=== PATIENT | female | born 1965 | race Caucasian/White ===

== ENCOUNTER → 2021-01-04 | Outpatient (REF) | payer MEDICARE ==
[2021-01-04 16:24] LABS: BASO % 0.7 % (0.0-1.0); EOS % 0.9 % (0.0-3.0); HEMATOCRIT 41.4 % (36.0-47.0); HEMOGLOBIN 13.7 g/dl (12.0-15.5); LYMPH # 1.8 10^3/uL (1.5-5.0); LYMPH % 41.4 % (24.0-44.0); MEAN CORPUSCULAR HEMOGLOBIN 31.6 pg (27.0-33.0); MEAN CORPUSCULAR HGB CONC 33.1 g/dl (32.0-36.5); MEAN CORPUSCULAR VOLUME 95.6 fl (80.0-96.0); MONO # 0.6 10^3/uL (0.0-0.8); MONO % 12.7 % (2.0-8.0); NEUTROPHILS % 44.1 % (36.0-66.0); PLATELET COUNT, AUTOMATED 209 10^3/uL (150-450); RED BLOOD COUNT 4.33 10^6/uL (4.00-5.40); WHITE BLOOD COUNT 4.4 10^3/uL (4.0-10.0)
[2021-01-04 16:40] LABS: ALBUMIN 3.8 GM/DL (3.2-5.2); BILIRUBIN,TOTAL 0.4 MG/DL (0.2-1.0); CALCIUM LEVEL 9.9 MG/DL (8.5-10.1); CHOLESTEROL RISK RATIO 2.644 (<5); CREATININE FOR GFR 1.17 MG/DL (0.55-1.30); FREE T4 0.81 NG/DL (0.76-1.46); GLOMERULAR FILTRATION RATE 50.8 (>51); POTASSIUM SERUM 4.3 MEQ/L (3.5-5.1); THYROID STIMULATING HORMONE 0.725 uIU/ML (0.358-3.740); TOTAL PROTEIN 7.4 GM/DL (6.4-8.2); URIC ACID 6.8 MG/DL (2.6-6.0)
[2021-01-04 17:09] LABS: HEMOGLOBIN A1c 5.2 %
== END ==
LOC: M SFHCCLAY 11:52
PROVIDERS: ATTEND Nurse Practitioner Family
DX: M10.9 Gout, unspecified (principal); I10 Essential (primary) hypertension; M79.672 Pain in left foot; F41.1 Generalized anxiety disorder; F51.04 Psychophysiologic insomnia; Z13.1 Encounter for screening for diabetes mellitus; Z79.899 Other long term (current) drug therapy

== ENCOUNTER → 2021-02-02 | Outpatient (REF) | payer MEDICARE ==
[2021-02-02 17:15] LABS: CALCIUM LEVEL 9.8 MG/DL (8.5-10.1); CREATININE FOR GFR 1.1 MG/DL (0.55-1.30); GLOMERULAR FILTRATION RATE 54.5 (>51); POTASSIUM SERUM 5.1 MEQ/L (3.5-5.1); URIC ACID 5.5 MG/DL (2.6-6.0)
== END ==
LOC: M SFHCCLAY 10:43
PROVIDERS: ATTEND Nurse Practitioner Family
DX: Z01.419 Encounter for gynecological examination (general) (routine) without abnormal findings (principal); M10.9 Gout, unspecified
CPT/HCPCS: 80048; 84550; G0123

== ENCOUNTER → 2021-03-08 | Outpatient (CLI) | payer MEDICARE ==
--- NOTE | 2021-03-08 13:22 | REPMRS ---
Patient History The patient states she had a clinical breast exam in January 2021. Patient is postmenopausal. Family history of colorectal cancer at age 85 in father. Patient had a benign cyst removed from left breast when she was 16 yrs old [employer] @ 56/had mammo years ago but no longer available No breast complaints today No covid vaccine Patient Identification Verified Digital Woman Screen Mammo: March 08, 2021 - Exam #: [id number] Bilateral CC and MLO view(s) were taken. Technologist: Liv Mosqueda, Technologist No prior studies available for comparison. FINDINGS: There are scattered fibroglandular densities. The Volpara volumetric breast density category is:B. There is a benign intramammary lymph node in the lateral aspect of each breast. There is also a grouping of microcalcifications in the superior and medial quadrant of the left breast which merits further evaluation. Lastly there are tiny calcific densities which appear to be on the skin in the axillary fold regions bilaterally. This is likely related to residue from deodorant. Mediolateral view should both be repeated. There has been no change in the appearance of the mammogram from the prior studies. There is a mild amount of scattered fibroglandular density which is fairly symmetric. There is no interval development of dominant mass, architectural distortion, or grouped microcalcification suggestive of malignancy. 3-D tomosynthesis shows no additional findings. Assessment: BI-RADS/ACR category 0 mammogram, Incomplete. Need additonal imaging evaluation and/or prior mammograms for comparison. Recommendation Special view mammogram of both breasts. This patient's [facility] Lifetime Breast Cancer RIsk is estimated at 7.1 %. This mammogram was interpreted with the aid of an FDA-approved computer-aided dectection system. Special view mammogram of the left breast. Recommend diagnostic mammography on the left and repeat mediolateral oblique projection mammogram on the right. Electronically Signed By: Thor Hardwick MD 03/08/21 5028
== END ==
LOC: M WHC 08:01
PROVIDERS: ATTEND Nurse Practitioner Family
DX: R92.2 Inconclusive mammogram (principal)

== ENCOUNTER → 2021-04-25 | Outpatient (CLI) | payer MEDICARE ==
--- NOTE | 2021-04-25 09:54 | REP ---
INDICATION: REPEAT R MLO, LEFT BREAST ADD VIEWS. COMPARISON: Screening exam 03/08/2021 TECHNIQUE: Diagnostic digital magnified spot compression views of the left breast upper inner quadrant over a grouping of punctate round calcifications and bilateral MLO views attention axillary region which is a repeat examination due to calcifications likely from deodorant. FINDINGS: The bilateral MLO views show the axillary calcifications to have been removed. In the upper inner quadrant of the left breast there is a group of round punctate calcifications which have little variance in size, shape, and radiographic density. IMPRESSION: BIRADS/ACR category 3 mammogram. Probably benign calcifications in the left breast upper inner quadrant as described above but without priors for comparison. Six-month follow-up is recommended. The patient letter being requested is M3. RECOMMENDATION: As above <Electronically signed by Giuseppe Grayson > 04/25/21 0998
== END ==
LOC: M WHC 08:51
PROVIDERS: ATTEND Nurse Practitioner Family
DX: R92.2 Inconclusive mammogram (principal)
CPT/HCPCS: 77066; G0279

== ENCOUNTER → 2021-05-05 | Outpatient (REF) | payer MEDICARE ==
[~2021-05-05] MED LIST: ADVA230A INH; ALLO10TA PO; CLON0.5T17 PO; FLUO20CA20 PO; FLUT50SP33; INCR1INH INH; NAPR-885 PO; PROAAER10 INH; TRAZ-257 PO
[2021-05-05 17:54] LABS: ALBUMIN 3.9 GM/DL (3.2-5.2); BILIRUBIN,TOTAL 0.4 MG/DL (0.2-1.0); CALCIUM LEVEL 10.4 MG/DL (8.5-10.1); CREATININE FOR GFR 1.07 MG/DL (0.55-1.30); GLOMERULAR FILTRATION RATE 56.1 (>51); POTASSIUM SERUM 4.4 MEQ/L (3.5-5.1); TOTAL PROTEIN 7.2 GM/DL (6.4-8.2); URIC ACID 2.4 MG/DL (2.6-6.0)
== END ==
LOC: M SFHCCLAY 09:20
PROVIDERS: ATTEND Nurse Practitioner Family
DX: F41.1 Generalized anxiety disorder (principal); I10 Essential (primary) hypertension; F51.04 Psychophysiologic insomnia; M10.9 Gout, unspecified; M79.672 Pain in left foot

== ENCOUNTER → 2021-05-11 | Outpatient (CLI) | payer MEDICARE | LOC: M LABSMTC 09:38 | PROVIDERS: ATTEND Anesthesiology | DX: Z01.812 Encounter for preprocedural laboratory examination (principal); Z11.52 Encounter for screening for COVID-19 ==

== ENCOUNTER 2021-05-16 12:06 | Day surgery (SDC) | payer MEDICARE ==
[~2021-05-16] VITALS: Ht 170.2 cm; Wt 76.7 kg
[~2021-05-16 12:06] MED LIST changes: +NS 1,000 ML IV ONE
--- OUTSIDE RECORDS SUMMARY | 2021-05-16 12:10 | CCD | Continuity of Care Document ---
Author Author Sapphire SMITH PA-C Organization Unknown Address [address] [place] [address], [address] [place] [address] Phone [phone] Care Team Providers Care Insole Buffer Name Role Phone Aissatou Muñoz AUTM [phone] AUTM Unavailable Problems Active Problems Provider Date Essential hypertension JAS Rivas Onset: Social History Type Date Description Comments Sex Unknown ETOH Use 2 A Day Tobacco Use Start: Unknown Light tobacco smoker (10 or fewe r cigarettes/day) 4 Cigs per day Allergies, Adverse Reactions, Alerts Description No Known Drug Allergies Medications Active Medications SIG Qnty Indications Ordering Provide r Date Suprep Bowel Prep Kit 17.5-3.13-1.6GM/177ML Solution take per doctor's bowel prep instructions. 354ml Z12.1 1 Ifeanyi Lawler MD 03/22/[address] take 4 tabs by mouth prior to procedure per instructions. 4tabs Z12.11 Ifeanyi Lawler MD 03/22/2021 Naproxen 500mg Tablets 1 by mouth twice a day Unknown Trazodone HCL 100mg Tablets 2 at hs Unknown Fluoxetine HCL 40mg Capsules daily Unknown Albuterol Sulfate HFA 108(90Base) mcg/Act Aerosol inhale two puffs by mouth four times a day as needed Unknown Fluticasone Propionate 50mcg/Act Suspension 1 spray to each nostril daily Unknown Allopurinol 300mg Tablets 1 by mouth every day Unknown Advair Diskus 250-50mcg/Dose Aeros ol 1 puff twice a day Unknown Incruse Ellipta 62.5mcg/Inh Aeroso l 1 puff every day Unknown Hydrochlorothiazide 12.5mg Capsule s 1 by mouth every day Unknown Clonazepam 0.5mg Tablets tid Unknown Laly Aspirin Ec Low Dose 81mg Tab lets DR Daily Unknown Apple Cider Vinegar Ultra 600mg Ca psules Daily Unknown Centrum Silver Tablets Daily Unknown Immunizations Description No Information Available Vital Signs Date Vital Result Comment 03/22/2021 1:35pm BP Systolic 112 mmHg BP Diastolic 72 mmHg Height 66.5 inches 5'6.50" Weight 166.00 lb BMI (Body Mass Index) 26.4 kg/m2 [place] Body Weight 130 lb Weight 75.298 kg BSA (Body Surface Area) 1.86 m2 Results Description No Information Available Procedures Description No Information Available Medical Devices Description No Information Available Encounters Description No Information Available Assessments Date Code Description Provider 03/22/2021 Z12.11 Encounter for screening for dena gnant neoplasm of colon Tiffanie Lagunas JAS Smith 03/22/2021 Z86.010 Personal history of colonic poly ps Tiffanie Lagunas JAS Smith 03/22/2021 Z80.0 Family history of malignant neop lasm of digestive organs Tiffanie A JAS Smith 03/22/2021 K21.9 Gastro-esophageal reflux disease without esophagitis Tiffanie Janneth JAS Smith Plan of Treatment 03/22/2021 - Tiffanie Lagunas JAS Smith* Z12.11 Encounter for screening for malignant neoplasm of colon * Z86.010 Personal history of colonic polyps * Z80.0 Family history of malignant neoplasm of digestive organs * K21.9 Gastro-esophageal reflux disease without esophagitis * * New Medication:* Suprep Bowel Prep Kit 17.5-3.13-1.6 GM/177ML * Dulcolax 5 mg * New Orders:* Colonoscopy, Ordered: 03/22/21 * Comments:* Will arrange for upper endoscopy and colonoscopy. Reviewed risks and benefits of the procedures, as well as other options, with the patient. Prep for this procedure was discussed with patient, including risks and side effects associated with the prep. Patient verbalized understanding of all of the above and is in agreement to proceed. Patient will seek medical attention for any acute changes. Will monitor. * Follow up:* As scheduled, sooner if needed. Functional Status Description No Information Available Mental Status Description No Information Available Referrals Refer to Reason for Referral Status Appt Date Janie Neely F.N.P. COPD, LUIZ Created [facility] [address] [place], [place] [id number] [phone] Adriel Cardenas M.D. COLO SCREEN Scheduled 03/22 [facility] [address], [address] [place] [address] [phone]
--- OUTSIDE RECORDS SUMMARY | 2021-05-16 12:10 | CCD ---
Author Author [facility] Organization [facility] Address Unknown Phone Unavailable Care Team Providers Care Shoe Dyer Name Role Phone Wanda Aissatou Unavailable PROBLEMS Type Condition ICD9-CM Code [id number] Code Onset Dates Condition S tatus W/U Status Risk SNOMED Code Notes Problem HTN (hypertension), benign I10 Active confirmed 17905575 Problem ANOOP (generalized anxiety disorder) F41.1 Activ e confirmed 92638438 Problem Chronic obstructive pulmonary disease, unspecified COPD ty pe J44.9 Active confirmed 08893833 Problem Other chronic pain G89.29 Active confirmed 8 2997927 Problem Acute gout of left knee, unspecified cause M10.9 Active confirmed [id number] Problem Abnormal mammogram of both breasts R92.8 Activ e confirmed 149659900 Problem Psychophysiological insomnia F51.04 Active confirme d 619166523 Problem LUIZ (obstructive sleep apnea) G47.33 Active confirm ed 51323523 Problem Lumbago with sciatica, left side M54.42 Active confirmed 887543266 Problem Lumbago with sciatica, right side M54.41 Active confirmed 755818236843247 ALLERGIES No Known Allergies ENCOUNTERS from 1965 to 2021-04-12 Encounter Location Date Provider Diagnosis [phone] [place] [address] Mar, Aissatou Muñoz IMMUNIZATIONS No Information SOCIAL HISTORY Tobacco Use: Social History Observation Description Date Details (start date - stop date) Current Smoker Sex Assigned At : Social History Observation Description Sex Assigned At Unknown Audit Question Answer Notes Total Score: 2 Interpretation: Alcohol Education Baptist: Question Answer Notes Baptist No rastafari beliefs that would impact health care. Drug and Alcohol Question Answer Notes Total Score: 0 Interpretation: No problems reported Alcohol Screening: Question Answer Notes Did you have a drink containing alcohol in the past year? Ye s Points 3 Interpretation Positive How often did you have six or more drinks on one occas ion in the past year? Never (0 points) How many drinks did you have on a typica l day when you were drinking in the past year? 1 or 2 (0 points) How often did you have a drink containing alcohol in t he past year? Two to three times per week (3 points) Tobacco Use: Question Answer Notes Are you a: current smoker How many cigarettes a day do you smoke? 5 or less Are you interested in quitting? Ready to quit Counseled the patient on tobacco use, cessation provided 02/2021 REASON FOR REFERRAL No Information VITAL SIGNS No information MEDICATIONS Medication SIG (Take, Route, Frequency, Duration) Notes Start Da te End Date Status Advair Diskus 250-50 MCG/DOSE 1 puff Inhalation Twice a day Active Losartan Potassium 50 MG 1 tablet Orally Once a day Active Allopurinol 300 MG TAKE 1 TABLET BY MOUTH EVERY DAY for 90 Active Ergocalciferol 1.25 MG (86325 UT) 1 capsule Orally weekly Active Incruse Ellipta 62.5 MCG/INH 1 puff Inhalation Once a day Active Fluticasone Propionate 50 MCG/ACT 1 spray in each nost ril Nasally Once a day for 30 day(s) Active clonazePAM 0.5 MG TAKE 1 TABLET BY MOUTH THREE TIMES DAILY AT BEDTIME MAXIMUM DAILY DOSE IS 3 TABLETS orally tid for 30 days 13 Mar, 2021 Active Multivitamin Adult Active predniSONE 20 MG 1 tablet Orally Once a day for 3 day(s) 0 9 Dec, 2020 Not-Taking Apple Cider Vinegar Activ e traZODone HCl 100 MG 1 tablet at bedtime Orally Once a day Active PROzac 40 MG 1 capsule Orally Once a day Active Spacer/Aero-Hold Chamber Bags - as directed - - for 30 Days Active hydroCHLOROthiazide 12.5 MG 1 tablet in the morning Orally Once a day Active Laly Aspirin EC Low Dose 81 MG 1 tablet Orally Once a day for 30 day (s) Active Albuterol Sulfate HFA 108 (90 Base) MCG/ACT 1 puff as needed Inhalation every 4 hrs PRN Active Flonase Not-Taking predniSONE 20 MG 2 tabs Orally PRN for COPD Flare Up COPD PRN Active PROCEDURES No Information RESULTS No Results REASON FOR VISIT script MEDICAL (GENERAL) HISTORY Type Description Date Medical History COPD Medical History HTN Medical History Gout Medical History Insomnia Medical History Anxiety Medical History Sciatic nerve damage Surgical History Reconstructive right great toe Surgical History Mass removed from left breast - benign 1 980s Surgical History Left kidney partial removal 2019 Surgical History Cholecystectomy Surgical History Colonoscopy: polyp removal 2015 Hospitalization History Surgery Goals Section No Information Health Concerns No Information MEDICAL EQUIPMENT No Information MENTAL STATUS No Information FUNCTIONAL STATUS No Information ASSESSMENTS No Information PLAN OF TREATMENT Medication Medication Name Sig Start Date Stop Date PROzac 40 MG 1 capsule Orally Once a day clonazePAM 0.5 MG TAKE 1 TABLET BY MOUTH THREE TIMES DAILY AT BEDTIME MAXIMUM DAILY DOSE IS 3 TABLETS orally tid for 30 days Mar, traZODone HCl 100 MG 1 tablet at bedtime Orally Once a day hydroCHLOROthiazide 12.5 MG 1 tablet in the morning Orally Once a day Allopurinol 300 MG TAKE 1 TABLET BY MOUTH EVERY DAY for 90 Losartan Potassium 50 MG 1 tablet Orally Once a day Spacer/Aero-Hold Chamber Bags - as directed - - for 30 Days Incruse Ellipta 62.5 MCG/INH 1 puff Inhalation Once a day Advair Diskus 250-50 MCG/DOSE 1 puff Inhalation Twice a day Next Appt Details Provider Name:Aissatou Muñoz, 2020-07 007 09:00:00 AM, [address], , [place], [address], Insurance Providers Payer Name Payer Address Payer Phone Insured Name Patient Relati onship to Insured Coverage Start Date Coverage End Date AETNA MEDICARE AETNA LIFE INSURANCE [employer] [address] [facility] [id number] LIA NORIEGA self
--- OUTSIDE RECORDS SUMMARY | 2021-05-16 12:10 | CCD ---
Author Author [facility] Organization [facility] Address Unknown Phone Unavailable Care Team Providers Care Hosting Engineer Name Role Phone Aissatou Muoñz Unavailable PROBLEMS Type Condition ICD9-CM Code IQQ12-QM Code Onset Dates Condition S tatus W/U Status Risk SNOMED Code Notes Problem HTN (hypertension), benign I10 Active confirmed 57748352 Problem ANOOP (generalized anxiety disorder) F41.1 Activ e confirmed 90567735 Problem Chronic obstructive pulmonary disease, unspecified COPD ty pe J44.9 Active confirmed 59777399 Problem Other chronic pain G89.29 Active confirmed 8 3078602 Problem Acute gout of left knee, unspecified cause M10.9 Active confirmed 420395403854591 Problem Abnormal mammogram of both breasts R92.8 Activ e confirmed 457015191 Problem Psychophysiological insomnia F51.04 Active confirme d 023254204 Problem LUIZ (obstructive sleep apnea) G47.33 Active confirm ed 84745453 Problem Lumbago with sciatica, left side M54.42 Active confirmed 138068280 Problem Lumbago with sciatica, right side M54.41 Active confirmed 025076967047197 ALLERGIES No Known Allergies ENCOUNTERS from 1965 to 2021-03-22 Encounter Location Date Provider Diagnosis [facility] [address] [phone] [place] [address] Feb, Aissatou Muñoz Abnormal mammogram of both breasts R92.8 IMMUNIZATIONS No Information SOCIAL HISTORY Tobacco Use: Social History Observation Description Date Details (start date - stop date) Current Smoker Sex Assigned At : Social History Observation Description Sex Assigned At Unknown Audit Question Answer Notes Total Score: 2 Interpretation: Alcohol Education Zoroastrian: Question Answer Notes Zoroastrian No sabianist beliefs that would impact health care. Drug [...] DAY for 90 Active Ergocalciferol 1.25 MG (21626 UT) 1 capsule Orally weekly Active Incruse Ellipta 62.5 MCG/INH 1 puff Inhalation Once a day Active Fluticasone Propionate 50 MCG/ACT 1 spray in each nost ril Nasally Once a day for 30 day(s) Active predniSONE 20 MG 1 tablet Orally Once a day for 3 day(s) 0 9 Dec, 2020 Not-Taking Multivitamin Adult Active Albuterol Sulfate HFA 108 (90 Base) MCG/ACT 1 puff as needed Inhalation every 4 hrs PRN Active Apple Cider Vinegar Activ e traZODone HCl [...] a day for 30 day (s) Active clonazePAM 0.5 MG TAKE 1 TABLET BY MOUTH THREE TIMES DAILY AT BEDTIME MAXIMUM DAILY DOSE IS 3 TABLETS for 30 16 Feb, 2021 A ctive Flonase Not-Taking predniSONE 20 MG 2 tabs Orally PRN for COPD Flare Up COPD PRN Active PROCEDURES No Information RESULTS No Results REASON FOR VISIT No Information MEDICAL (GENERAL) HISTORY Type Description Date Medical [...] No Information FUNCTIONAL STATUS No Information ASSESSMENTS Encounter Date Diagnosis Assessment Notes Treatment Notes Treatm ent Clinical Notes Feb, Abnormal mammogram of both breasts (ICD-10 - R92 .8) PLAN OF TREATMENT Medication Medication Name Sig Start Date Stop Date PROzac 40 MG 1 capsule Orally Once a day clonazePAM 0.5 MG TAKE 1 TABLET BY MOUTH THREE TIMES DAILY AT BEDTIME MAXIMUM DAILY DOSE IS 3 TABLETS for 30 Feb, traZODone HCl 100 MG 1 tablet at [...] MCG/DOSE 1 puff Inhalation Twice a day Treatment Notes Test Name Order Date [facility] DIAGNOSTIC BILATERAL MAMMO (Ultrasound if indicat ed) 2021-03-08 Next Appt Details Provider Name:Aissatou Muñoz, 2020-07 007 09:00:00 AM, [address] , , [place], [address], Insurance Providers Payer Name Payer Address Payer Phone Insured Name Patient Relati onship to Insured Coverage Start Date Coverage End Date AETNA MEDICARE AETNA [employer] INSURANCE [employer] [address] [facility] [phone] LIA NORIEGA self
--- OUTSIDE RECORDS SUMMARY | 2021-05-16 12:10 | CCD ---
Author Author [facility] Organization [facility] Address Unknown Phone Unavailable Care Team Providers Care Hazardous Materials Tanker Driver Name Role Phone Fabienne Muñoziffer Unavailable PROBLEMS Type Condition ICD9-CM Code [id number] Code Onset Dates Condition S tatus W/U Status Risk SNOMED Code Notes Problem Acute gout of left knee, unspecified cause M10.9 Active confirmed [id number] Problem HTN (hypertension), benign I10 Active confirmed 43174870 Problem ANOOP (generalized anxiety disorder) F41.1 Activ e confirmed 38735552 Problem Lumbago with sciatica, right side M54.41 Active confirmed 852969111343885 Problem Other chronic pain G89.29 Active confirmed 8 1922019 Problem Chronic obstructive pulmonary disease, unspecified COPD ty pe J44.9 Active confirmed 30936861 Problem Psychophysiological insomnia F51.04 Active confirme d 238141661 Problem LUIZ (obstructive sleep apnea) G47.33 Active confirm ed 11203171 Problem Lumbago with sciatica, left side M54.42 Active confirmed 266920646 ALLERGIES No Known Allergies ENCOUNTERS from 1965 to 2021-02-17 Encounter Location Date Provider Diagnosis [address] [phone] [place] [address] Jan, Aissatou Muñoz IMMUNIZATIONS No Information SOCIAL HISTORY Tobacco Use: Social History Observation Description Date Details (start date - stop date) Current Smoker Sex Assigned At : Social History Observation Description Sex Assigned At Unknown Audit Question Answer Notes Total Score: 2 Interpretation: Alcohol Education Restorationism: Question Answer Notes Restorationism No lutheran beliefs that would impact health care. Drug [...] Notes Start Da te End Date Status Losartan Potassium 50 MG 1 tablet Orally Once a day Active predniSONE 20 MG 2 tabs Orally PRN for COPD Flare Up Active Incruse Ellipta 62.5 MCG/INH 1 puff Inhalation Once a day Active hydroCHLOROthiazide 12.5 MG 1 tablet in the morning Orally Once a day Active Advair Diskus 250-50 MCG/DOSE 1 puff Inhalation Twice a day Active Fluticasone Propionate 50 MCG/ACT 1 spray in each nost ril Nasally Once a day for 30 day(s) Active predniSONE 20 MG 1 tablet Orally Once a day for 3 day(s) 0 9 Dec, 2020 Not-Taking Multivitamin Adult Active Albuterol Sulfate HFA 108 (90 Base) MCG/ACT 1 puff as needed Inhalation every 4 hrs PRN Active traZODone HCl 100 MG 1 tablet at bedtime Orally Once a day Active Ergocalciferol 1.25 MG (55491 UT) 1 capsule Orally weekly Active clonazePAM 0.5 MG 1 tablet at bedtime Orally three times per day for 30 Days Active Laly Aspirin EC Low Dose 81 MG 1 tablet Orally Once a day for 30 day (s) Active Flonase Not-Taking Apple Cider Vinegar Activ e Allopurinol 300 MG 1 tablet Orally Once a day for 90 day(s) Active PROzac 40 MG 1 capsule Orally Once a day Active Spacer/Aero-Hold Chamber Bags - as directed - - for 30 Days Active PROCEDURES No Information RESULTS No Results REASON FOR VISIT zunable to move finger s/p laceration MEDICAL (GENERAL) HISTORY Type Description Date Medical [...] Medication Name Sig Start Date Stop Date clonazePAM 0.5 MG 1 tablet at bedtime Orally three times per day for 30 Days Allopurinol 300 MG 1 tablet Orally Once a day for 90 day(s) hydroCHLOROthiazide 12.5 MG 1 tablet in the morning Orally Once a day PROzac 40 MG 1 capsule Orally Once a day Incruse Ellipta 62.5 MCG/INH 1 puff Inhalation Once a day Spacer/Aero-Hold Chamber Bags - as directed - - for 30 Days traZODone HCl 100 MG 1 tablet at bedtime Orally Once a day Advair Diskus 250-50 MCG/DOSE 1 puff Inhalation Twice a day Losartan Potassium 50 MG 1 tablet Orally Once a day Next Appt Details Provider Name:Aissatou Muñoz, 2020-07 09:00:00 AM, [address] , , [place], [address], Insurance Providers Payer Name Payer Address Payer Phone Insured Name Patient Relati onship to Insured Coverage Start Date Coverage End Date AETNA MEDICARE AETNA [email or web address] INSURANCE [employer] [address] [facility] [phone] LIA NORIEGA self
--- OUTSIDE RECORDS SUMMARY | 2021-05-16 12:10 | CCD ---
Author Author [facility] Organization [facility] Address Unknown Phone Unavailable Care Team Providers Care Gas Fitter Apprentice Name Role Phone Neeraj Oconnell Unavailable PROBLEMS Type Condition ICD9-CM Code [id number] Code Onset Dates Condition S tatus W/U Status Risk SNOMED Code Notes Problem HTN (hypertension), benign I10 Active confirmed 07701710 Problem ANOOP (generalized anxiety disorder) F41.1 Activ e confirmed 10203809 Problem Chronic obstructive pulmonary disease, unspecified COPD ty pe J44.9 Active confirmed 47588506 Problem Other chronic pain G89.29 Active confirmed 8 8125686 Problem Acute gout of left knee, unspecified cause M10.9 Active confirmed 035774846089317 Problem Abnormal mammogram of both breasts R92.8 Activ e confirmed 100751343 Problem Psychophysiological insomnia F51.04 Active confirme d 248505032 Problem LUIZ (obstructive sleep apnea) G47.33 Active confirm ed 83228805 Problem Lumbago with sciatica, left side M54.42 Active confirmed 726294056 Problem Lumbago with sciatica, right side M54.41 Active confirmed 595979379055512 ALLERGIES No Known Allergies ENCOUNTERS from 1965 to 2021-03-10 Encounter Location Date Provider Diagnosis [facility] [phone] [place] [address] Feb, Neeraj Oconnell ANOOP (generalized anxiety disorder) F41.1 IMMUNIZATIONS No Information SOCIAL HISTORY Tobacco Use: Social History Observation Description Date Details (start date - stop date) Current Smoker Sex Assigned At : Social History Observation Description Sex Assigned At Unknown Audit Question Answer Notes Total Score: 2 Interpretation: Alcohol Education Jainism: Question Answer Notes Jainism No mu-ism beliefs that would impact health care. Drug [...] DAY for 90 Active Ergocalciferol 1.25 MG (13678 UT) 1 capsule Orally weekly Active Incruse [...] 30 day (s) Active clonazePAM 0.5 MG 1 tablet at bedtime Orally three times per day for 30 Days Feb, Active Flonase Not-Taking predniSONE 20 MG 2 [...] Treatment Notes Treatm ent Clinical Notes Feb, ANOOP (generalized anxiety disorder) (ICD-10 - F41 .1) PLAN OF TREATMENT Medication Medication Name Sig Start Date Stop Date PROzac 40 MG 1 capsule Orally Once a day clonazePAM 0.5 MG 1 tablet at bedtime Orally three times p er day for 30 Days Feb, traZODone HCl 100 MG 1 tablet [...] 007 09:00:00 AM, [address] , , [place], [address], Insurance Providers Payer Name Payer Address Payer Phone Insured Name Patient Relati onship to Insured Coverage Start Date Coverage End Date AETNA MEDICARE AETNA [employer] INSURANCE [employer] [address] [facility] [id number] LIA NORIEGA self
--- OUTSIDE RECORDS SUMMARY | 2021-05-16 12:10 | CCD ---
Author Author [facility] Organization [facility] Address Unknown Phone Unavailable Care Team Providers Care Bandoleer Straightener Stamper Name Role Phone Aissatou Muñoz Unavailable PROBLEMS Type Condition ICD9-CM Code YZW05-ME Code Onset Dates Condition S tatus W/U Status Risk SNOMED Code Notes Problem ANOOP (generalized anxiety disorder) F41.1 Activ e confirmed 62970914 Problem Chronic obstructive pulmonary disease, unspecified COPD ty pe J44.9 Active confirmed 16184341 Problem Psychophysiological insomnia F51.04 Active confirme d 845124186 Problem Abnormal mammogram of both breasts R92.8 Activ e confirmed 332591184 Problem Acute gout of left knee, unspecified cause M10.9 Active confirmed 748162299638423 Problem Abnormal mammogram of left breast R92.8 Active confirmed 261317891 Problem HTN (hypertension), benign I10 Active confirmed 97026312 Problem LUIZ (obstructive sleep apnea) G47.33 Active confirm ed 52168428 Problem Lumbago with sciatica, left side M54.42 Active confirmed 164261847 Problem Lumbago with sciatica, right side M54.41 Active confirmed 786615639497351 Problem Other chronic pain G89.29 Active confirmed 8 2286067 ALLERGIES No Known Allergies ENCOUNTERS from 1965 to 2021-04-25 Encounter Location Date Provider Diagnosis [facility] [phone] [place] [address] Mar, Aissatou Muñoz Abnormal mammogram of left breast R92.8 IMMUNIZATIONS No Information SOCIAL HISTORY Tobacco Use: Social History Observation Description Date Details (start date - stop date) Current Smoker Sex Assigned At : Social History Observation Description Sex Assigned At Unknown Audit Question Answer Notes Total Score: 2 Interpretation: Alcohol Education Sikh: Question Answer Notes Sikh No spiritism beliefs that would impact health care. Drug [...] DAY for 90 Active Ergocalciferol 1.25 MG (63820 UT) 1 capsule Orally weekly Active Incruse [...] Notes Treatment Notes Treatm ent Clinical Notes Mar, Abnormal mammogram of left breast (ICD-10 - R92. 8) PLAN OF TREATMENT Medication Medication Name Sig [...] MCG/DOSE 1 puff Inhalation Twice a day Future Test Test Name Order Date [facility] Bret Diagnostic Unilateral (Ultrasound if Indicat ed) (3D Mammo) 20211023 Next Appt Details Provider Name:Aissatou Muñoz, 2020-07 0 09:00:00 AM, [address], , [place], [address], Insurance Providers Payer Name Payer Address Payer Phone Insured Name Patient Relati onship to Insured Coverage Start Date Coverage End Date [employer] MEDICARE [employer] INSURANCE SyndicateRoom [address] [facility] [id number] LIA NORIEGA self
--- OUTSIDE RECORDS SUMMARY | 2021-05-16 12:10 | CCD ---
Author Author [facility] Organization [facility] Address Unknown Phone Unavailable Care Team Providers Care Glass Grinder Name Role Phone CHRISTOPHER, M ABRIL PA Unavailable Unavailable CHRISTOPHER, M ABRIL PA Unavailable Unavailable CHRISTOPHER, M ABRIL PA Unavailable Unavailable CHRISTOPHER, M ABRIL PA Unavailable Unavailable CHRISTOPHER, M ABRIL PA Unavailable Unavailable CHRISTOPHER, M ABRIL PA Unavailable Unavailable CHRISTOPHER, M ABRIL PA Unavailable Unavailable CHRISTOPHER, M ABRIL PA Unavailable Unavailable CHRISTOPHER, M ABRIL PA Unavailable Unavailable CHRISTOPHER, M ABRIL PA Unavailable Unavailable CHRISTOPHER, M ABRIL PA Unavailable Unavailable CHRISTOPHER, M ABRIL PA Unavailable Unavailable CHRISTOPHER, M ABRIL PA Unavailable Unavailable CHRISTOPHER, M ABRIL PA Unavailable Unavailable CHRISTOPHER, M ABRIL PA Unavailable Unavailable CHRISTOPHER, M ABRIL PA Unavailable Unavailable CHRISTOPHER, M ABRIL PA Unavailable Unavailable CHRISTOPHER, M ABRIL PA Unavailable Unavailable CHRISTOPHER, M ABRIL PA Unavailable Unavailable CHRISTOPHER, M ABRIL PA Unavailable Unavailable CHRISTOPHER, M ABRIL PA Unavailable Unavailable CHRISTOPHER, M ABRIL PA Unavailable Unavailable CHRISTOPHER, M ABRIL PA Unavailable Unavailable CHRISTOPHER, M ABRIL PA Unavailable Unavailable Alberry, D Aissatou SECURITY INSTALLER Unavailable Unavailable Alberry, D Aissatou SECURITY INSTALLER Unavailable Unavailable Alberry, D Aissatou SECURITY INSTALLER Unavailable Unavailable Alberry, D Aissatou SECURITY INSTALLER Unavailable Unavailable Alberry, D Aissatou SECURITY INSTALLER Unavailable Unavailable Alberry, D Aissatou SECURITY INSTALLER Unavailable Unavailable Alberry, D Aissatou SECURITY INSTALLER Unavailable Unavailable Alberry, D Aissatou SECURITY INSTALLER Unavailable Unavailable Alberry, D Aissatou SECURITY INSTALLER Unavailable Unavailable Alberry, D Aissatou SECURITY INSTALLER Unavailable Unavailable Alberry, D Aissatou SECURITY INSTALLER Unavailable Unavailable Alberry, D Aissatou SECURITY INSTALLER Unavailable Unavailable Alberry, D Aissatou SECURITY INSTALLER Unavailable Unavailable Alberry, D Aissatou SECURITY INSTALLER Unavailable Unavailable Alberry, D Aissatou SECURITY INSTALLER Unavailable Unavailable Alberry, D Aissatou SECURITY INSTALLER Unavailable Unavailable Alberry, D Aissatou SECURITY INSTALLER Unavailable Unavailable Alberry, D Aissatou SECURITY INSTALLER Unavailable Unavailable Alberry, D Aissatou SECURITY INSTALLER Unavailable Unavailable Alberry, D Aissatou SECURITY INSTALLER Unavailable Unavailable Alberry, D Aissatou SECURITY INSTALLER Unavailable Unavailable Alberry, D Aissatou SECURITY INSTALLER Unavailable Unavailable Alberry, D Aissatou SECURITY INSTALLER Unavailable Unavailable Alberry, D Aissatou SECURITY INSTALLER Unavailable Unavailable Alberry, D Aissatou SECURITY INSTALLER Unavailable Unavailable Alberry, D Aissatou SECURITY INSTALLER Unavailable Unavailable Alberry, D Aissatou SECURITY INSTALLER Unavailable Unavailable Alberry, D Aissatou SECURITY INSTALLER Unavailable Unavailable Alberry, D Aissatou SECURITY INSTALLER Unavailable Unavailable Alberry, D Aissatou SECURITY INSTALLER Unavailable Unavailable Alberry, D Aissatou SECURITY INSTALLER Unavailable Unavailable Alberry, D Aissatou SECURITY INSTALLER Unavailable Unavailable Alberry, D Aissatou SECURITY INSTALLER Unavailable Unavailable Alberry, D Aissatou SECURITY INSTALLER Unavailable Unavailable Alberry, D Aissatou SECURITY INSTALLER Unavailable Unavailable Alberry, D Aissatou SECURITY INSTALLER Unavailable Unavailable Alberry, D Aissatou SECURITY INSTALLER Unavailable Unavailable Alberry, D Aissatou SECURITY INSTALLER Unavailable Unavailable Alberry, D Aissatou SECURITY INSTALLER Unavailable Unavailable Alberry, D Aissatou SECURITY INSTALLER Unavailable Unavailable Alberry, D Aissatou SECURITY INSTALLER Unavailable Unavailable Alberry, D Aissatou SECURITY INSTALLER Unavailable Unavailable Alberry, D Aissatou SECURITY INSTALLER Unavailable Unavailable Alberry, D Aissatou SECURITY INSTALLER Unavailable Unavailable Alberry, D Aissatou SECURITY INSTALLER Unavailable Unavailable Alberry, D Aissatou SECURITY INSTALLER Unavailable Unavailable Alberry, D Aissatou SECURITY INSTALLER Unavailable Unavailable Alberry, D Aissatou SECURITY INSTALLER Unavailable Unavailable Alberry, D Aissatou SECURITY INSTALLER Unavailable Unavailable Alberry, D Aissatou SECURITY INSTALLER Unavailable Unavailable Alberry, D Aissatou SECURITY INSTALLER Unavailable Unavailable Alberry, D Aissatou SECURITY INSTALLER Unavailable Unavailable Alberry, D Aissatou SECURITY INSTALLER Unavailable Unavailable Alberry, D Aissatou SECURITY INSTALLER Unavailable Unavailable Alberry, D Aissatou SECURITY INSTALLER Unavailable Unavailable Nate MEAD DPM Unavailable Unavailable Nate MEAD DPM Unavailable Unavailable Nate MEAD DPM Unavailable Unavailable Nate MEAD DPM Unavailable Unavailable Nate MEAD DPM Unavailable Unavailable Nate MEAD DPM Unavailable Unavailable Nate MEAD DPM Unavailable Unavailable Nate MEAD DPM Unavailable Unavailable Nate MEAD DPM Unavailable Unavailable MAJAK, R ISRA DPM Unavailable Unavailable MAJAK, R ISRA DPM Unavailable Unavailable MAJAK, R ISRA DPM Unavailable Unavailable MAJAK, R ISRA DPM Unavailable Unavailable MAJAK, R ISRA DPM Unavailable Unavailable MAJAK, R ISRA DPM Unavailable Unavailable MAJAK, R ISRA DPM Unavailable Unavailable MAJAK, R ISRA DPM Unavailable Unavailable MAJAK, R ISRA DPM Unavailable Unavailable MAJAK, R ISRA DPM Unavailable Unavailable MAJAK, R ISRA DPM Unavailable Unavailable MAJAK, R ISRA DPM Unavailable Unavailable MAJAK, R ISRA DPM Unavailable Unavailable MAJAK, R ISRA DPM Unavailable Unavailable MAJAK, R ISRA DPM Unavailable Unavailable MAJAK, R ISRA DPM Unavailable Unavailable MAJAK, R ISRA DPM Unavailable Unavailable MAJAK, R ISRA DPM Unavailable Unavailable MAJAK, R IRSA DPM Unavailable Unavailable MAJAK, R ISRA DPM Unavailable Unavailable MAJAK, R ISRA DPM Unavailable Unavailable MAJAK, R ISRA DPM Unavailable Unavailable RILEY, L DAR PA Unavailable Unavailable RILEY, L DAR PA Unavailable Unavailable RILEY, L DAR PA Unavailable Unavailable RILEY, L DAR PA Unavailable Unavailable RILEY, L DAR PA Unavailable Unavailable RILEY, L DAR PA Unavailable Unavailable RILEY, L DAR PA Unavailable Unavailable RILEY, L DAR PA Unavailable Unavailable RILEY, L DAR PA Unavailable Unavailable RILEY, L DAR PA Unavailable Unavailable RILEY, L DAR PA Unavailable Unavailable RILEY, L DAR PA Unavailable Unavailable RILEY, L DAR PA Unavailable Unavailable RILEY, L DAR PA Unavailable Unavailable RILEY, L DAR PA Unavailable Unavailable RILEY, L DAR PA Unavailable Unavailable RILEY, L DAR PA Unavailable Unavailable RILEY, L DAR PA Unavailable Unavailable RILEY, L DAR PA Unavailable Unavailable RILEY, L DAR PA Unavailable Unavailable RILEY, L DAR PA Unavailable Unavailable RILEY, L DAR PA Unavailable Unavailable WOLFENDEN, T ELSA PA Unavailable Unavailable WOLFENDEN, T ELSA PA Unavailable Unavailable WOLFENDEN, T ELSA PA Unavailable Unavailable WOLFENDEN, T ELSA PA Unavailable Unavailable WOLFENDEN, T ELSA PA Unavailable Unavailable WOLFENDEN, T ELSA PA Unavailable Unavailable WOLFENDEN, T ELSA PA Unavailable Unavailable WOLFENDEN, T ELSA PA Unavailable Unavailable WOLFENDEN, T ELSA PA Unavailable Unavailable WOLFENDEN, T ELSA PA Unavailable Unavailable WOLFENDEN, T ELSA PA Unavailable Unavailable WOLFENDEN, T ELSA PA Unavailable Unavailable WOLFENDEN, T ELSA PA Unavailable Unavailable WOLFENDEN, T ELSA PA Unavailable Unavailable WOLFENDEN, T ELSA PA Unavailable Unavailable WOLFENDEN, T ELSA PA Unavailable Unavailable WOLFENDEN, T ELSA PA Unavailable Unavailable WOLFENDEN, T ELSA PA Unavailable Unavailable WOLFENDEN, T ELSA PA Unavailable Unavailable WOLFENDEN, T ELSA PA Unavailable Unavailable WOLFENDEN, T ELSA PA Unavailable Unavailable WOLFENDEN, T ELSA PA Unavailable Unavailable WOLFENDEN, T ELSA PA Unavailable Unavailable WOLFENDEN, T ELSA PA Unavailable Unavailable WOLFENDEN, T ELSA PA Unavailable Unavailable WOLFENDEN, T ELSA PA Unavailable Unavailable WOLFENDEN, T ELSA PA Unavailable Unavailable WOLFENDEN, T ELSA PA Unavailable Unavailable WOLFENDEN, T ELSA PA Unavailable Unavailable WOLFENDEN, T ELSA PA Unavailable Unavailable Christiano, Anay Roa SECURITY INSTALLER Unavailable Unavailable Christiano, Anay Crispin SECURITY INSTALLER Unavailable Unavailable Christiano, Anay Roa SECURITY INSTALLER Unavailable Unavailable Christiano, Anay Crispin SECURITY INSTALLER Unavailable Unavailable Christiano, Anay Crispin SECURITY INSTALLER Unavailable Unavailable Butler, Anay Crispin SECURITY INSTALLER Unavailable Unavailable Christiano, Anay Crispin SECURITY INSTALLER Unavailable Unavailable Butler, Anay Crispin SECURITY INSTALLER Unavailable Unavailable Butler, Anay Crispin SECURITY INSTALLER Unavailable Unavailable Butler, Anay Crispin SECURITY INSTALLER Unavailable Unavailable Butler, Anay Crispin SECURITY INSTALLER Unavailable Unavailable Christiano, Anay Crispin SECURITY INSTALLER Unavailable Unavailable Christiano, Anay Crispin SECURITY INSTALLER Unavailable Unavailable Butler, Anay Crispin SECURITY INSTALLER Unavailable Unavailable PARISH, GABBIE EDNA PA Unavailable Unavailable PARISH, GABBIE EDNA PA Unavailable Unavailable PARISH, GABBIE EDNA PA Unavailable Unavailable PARISH, GABBIE EDNA PA Unavailable Unavailable PARISH, GABBIE ENDA PA Unavailable Unavailable PARISH, GABBIE EDNA PA Unavailable Unavailable PARISH, GABBIE EDNA PA Unavailable Unavailable PARISH, GABBIE EDNA PA Unavailable Unavailable PARISH, GABBIE EDNA PA Unavailable Unavailable PARISH, GABBIE EDNA PA Unavailable Unavailable PARISH, GABBIE EDNA PA Unavailable Unavailable PARISH, GABBIE EDNA PA Unavailable Unavailable PARISH, GABBIE EDNA PA Unavailable Unavailable PARISH, GABBIE EDNA PA Unavailable Unavailable PARISH, GABBIE EDNA PA Unavailable Unavailable PARISH, GABBIE EDNA PA Unavailable Unavailable PARISH, GABBIE EDNA PA Unavailable Unavailable PARISH, GABBIE EDNA PA Unavailable Unavailable PARISH, GABBIE BISHOP PA Unavailable Unavailable PARISH, GABBIE BISHOP PA Unavailable Unavailable PARISH, GABBIE BISHOP PA Unavailable Unavailable PARISH, GABBIE BISHOP PA Unavailable Unavailable Re-disclosure Warning The records that you are about to access may contain information from federally-assisted alcohol or drug abuse programs. If such information is present, then the following federally mandated warning applies: This information has been disclosed to you from records protected by federal confidentiality rules (42 CFR part 2). The federal rules prohibit you from making any further disclosure of this information unless further disclosure is expressly permitted by the written consent of the person to whom it pertains or as otherwise permitted by 42 CFR part 2. A general authorization for the release of medical or other information is NOT sufficient for this purpose. The Federal rules restrict any use of the information to criminally investigate or prosecute any alcohol or drug abuse patient.The records that you are about to access may contain highly sensitive health information, the redisclosure of which is protected by Article 27-F of the [facility] Public Health law. If you continue you may have access to information: Regarding HIV / AIDS; Provided by facilities licensed or operated by the [facility] Office of Mental Health; or Provided by the [facility] Office for People With Developmental Disabilities. If such information is present, then the following [facility] mandated warning applies: This information has been disclosed to you from confidential records which are protected by state law. State law prohibits you from making any further disclosure of this information without the specific written consent of the person to whom it pertains, or as otherwise permitted by law. Any unauthorized further disclosure in violation of state law may result in a fine or snf sentence or both. A general authorization for the release of medical or other information is NOT sufficient authorization for further disc losure. Encounters Encounter Providers Location Date Indications Data Source(s ) Unknown [address] [facility] [address] 04/25/2021 12:00:00 AM EDT eCW1 ([facility]) Unknown [address] [facility] [address] 04/11/2021 12:00:00 AM EDT eCW1 ([facility]) Unknown [address] [facility] [address] 03/10/2021 12:00:00 AM EDT [facility]CW1 ([facility]) [place] [address] [facility] [address] 03/08/2021 12:00:00 AM EDT eCW1 ([facility]) [place] [address] [facility] [address] 02/25/2021 12:00:00 AM EDT eCW1 ([facility]) Outpatient Attender: ABRIL ALMAZAN 02/19/2021 10:30:00 AM [facility] Emergency Attender: EDNA Nair AAttender: Crispin Alvarado FNPReferrer: Aissatou BALDERAS 02/17/2021 08:30:00 PM EDT - 02/17/2021 08:38:00 PM [facility] Patient discharged. Unknown [address] [facility] [address] 02/17/2021 12:00:00 AM EDT eCW1 ([facility]) Emergency Attender: DAR ALMAZAN 01/27 02:50:00 PM EDT - 02/10/2021 04:17:00 PM [facility] Patient discharged. [place] [address] [facility] [address] 02/10/2021 12:00:00 AM EDT eCW1 ([facility]) Outpatient [address] [facility] [address] 02/02/2021 12:00:00 AM EDT eCW1 ([facility]) Outpatient Attender: ISRA MEAD [facility] Office 12/28 08:00:00 AM EDT [facility] ([facility] [place] [address] [facility] [address] 01/05/2021 12:00:00 AM EDT eCW1 ([facility]) Outpatient [address] [facility] [address] 01/04/2021 12:00:00 AM EDT eCW1 ([facility]) Emergency Attender: ELSA ALMAZAN EMERGENCY ROOM-ER 11/20/2020 09:30:00 PM EDT - 11/20/2020 10:50:00 PM EDT [facility] Patient discharged. Medications Medication Brand Name Start Date Product Form Dose Route Admi nistrative Instructions Pharmacy Instructions Status Indications Reaction Description Data Source(s) Clonazepam 0.5 MG Oral Tablet clonazePAM 0.5 MG clonazePAM 0 .5 MG 04/11/2021 12:00:00 AM EDT active clonazeP AM 0.5 MG eCW1 ([facility]) Clonazepam 0.5 MG Oral Tablet clonazePAM 0.5 MG clonazePAM 0 .5 MG 04/11/2021 12:00:00 AM EDT active clonazeP AM 0.5 MG eCW1 ([facility]) Bisacodyl 5 MG Delayed Release Oral Tablet [Dulcolax] Dulcol ax 03/22/2021 12:00:00 AM EDT ORAL active M EDENT ([facility], ) Suprep Bowel Prep Kit Suprep Bowel Prep Kit 03/22/2021 12:00:00 AM EDT active MEDENT ([facility], ) Clonazepam 0.5 MG Oral Tablet clonazePAM 0.5 MG clonazePAM 0 .5 MG 03/14/2021 12:00:00 AM EDT active clonazeP AM 0.5 MG eCW1 ([facility]) Clonazepam 0.5 MG Oral Tablet clonazePAM 0.5 MG clonazePAM 0 .5 MG 03/10/2021 12:00:00 AM EDT 1.0 {tablet_at_bedtime} active clonazePAM 0.5 MG eCW1 ([facility]) 5-325 mg 02/10/2021 12:00:00 AM EDT tablet 12 TAKE 1-2 TABLETS BY MOUTH EVERY 4-6 HOURS NEEDED MAXIMUM DAILY DOSE = 12 TABLETS TAKE 1-2 TABLETS BY MOUTH EVERY 4-6 HOURS NEEDED MAXIMUM DAILY DOSE = 12 TABLETS SOLD: 02/10/2021 [facility] Naproxen 500 MG Oral Tablet Naproxen 01/11/2021 12:00:00 AM EDT active MEDENT ([facility] Prednisone 20 MG Oral Tablet predniSONE 20 MG predniSONE 20 MG 01/05/2021 12:00:00 AM EDT 1.0 {tablet} suspended predniSONE 20 MG eCW1 ([facility]) Prednisone 20 MG Oral Tablet predniSONE 20 MG predniSONE 20 MG 01/05/2021 12:00:00 AM EDT 1.0 {tablet} suspended predniSONE 20 MG eCW1 ([facility]) Prednisone 20 MG Oral Tablet predniSONE 20 MG predniSONE 20 MG 01/05/2021 12:00:00 AM EDT 1.0 {tablet} suspended predniSONE 20 MG eCW1 ([facility]) Prednisone 20 MG Oral Tablet predniSONE 20 MG predniSONE 20 MG 01/05/2021 12:00:00 AM EDT 1.0 {tablet} suspended predniSONE 20 MG eCW1 ([facility]) Prednisone 20 MG Oral Tablet predniSONE 20 MG predniSONE 20 MG 01/05/2021 12:00:00 AM EDT 1.0 {tablet} suspended predniSONE 20 MG eCW1 ([facility]) Prednisone 20 MG Oral Tablet predniSONE 20 MG predniSONE 20 MG 01/05/2021 12:00:00 AM EDT 1.0 {tablet} suspended predniSONE 20 MG eCW1 ([facility]) Prednisone 20 MG Oral Tablet predniSONE 20 MG predniSONE 20 MG 01/05/2021 12:00:00 AM EDT 1.0 {tablet} suspended predniSONE 20 MG eCW1 ([facility]) Prednisone 20 MG Oral Tablet predniSONE 20 MG predniSONE 20 MG 01/05/2021 12:00:00 AM EDT 1.0 {tablet} active pr edniSONE 20 MG eCW1 ([facility]) Prednisone 20 MG Oral Tablet predniSONE 20 MG predniSONE 20 MG 01/05/2021 12:00:00 AM EDT 1.0 {tablet} active pr edniSONE 20 MG eCW1 ([facility]) Prednisone 20 MG Oral Tablet predniSONE 20 MG predniSONE 20 MG 01/05/2021 12:00:00 AM EDT 1.0 {tablet} suspended predniSONE 20 MG eCW1 ([facility]) Spacer/Aero-Hold Chamber Bags - UNK 01/04/2021 12:00:00 AM EDT active Spacer/Aero-Hold Chamber Bags - eCW1 ([facility]) Spacer/Aero-Hold Chamber Bags - UNK 01/04/2021 12:00:00 AM EDT active Spacer/Aero-Hold Chamber Bags - eCW1 ([facility]) 0.6 mg 11/21/2020 12:00:00 AM EDT tablet 7 TAKE ONE TABLET BY MOUTH ONCE DAILY FOR 7 DAYS TAKE ONE TABLET BY MOUTH ONCE DAILY FOR 7 DAYS SOLD: 0 11/21/2020 [facility] 0.5 mg-3 mg(2.5 mg base)/3 mL 06/18/2020 12:00:0 0 AM EST solution for nebulization 270 INHALE ONE VIAL VIA NEBULIZER EV GLEN 6 HOURS WHILE AWAKE INHALE ONE VIAL VIA NEBULIZER EVERY 6 HOURS WHILE AWAKE SOLD: 06/19/2020 [facility] 20 mg 06/18/2020 12:00:00 AM EST tablet 4 TAKE TWO TABLETS BY MOUTH EVERY DAY FOR 1 DAY THEN TAKE ONE TABLET ONCE DAILY FOR 1 DAY THEN TAKE 1/2 TABLET ONCE DAILY FOR 2 DAYS TAKE TWO TABLETS BY MOUTH EVERY DAY FOR 1 DAY THEN TAKE ONE TABLET ONCE DAILY FOR 1 DAY THEN TAKE 1/2 TABLET ONCE DAILY FOR 2 DAYS SOLD: 06/19/2020 [facility] Insurance Providers Payer name Policy type / Coverage type Policy ID Covered republican ID Covered republican's relationship to chirinos Policy Chirinos Plan Information SET [id number] S [id number] [employer] MEDICARE [id number] SP 10 [id number] A[employer]NA MEDICARE [id number] SP 10 [id number] SET [id number] S [id number] [employer] [id number] S [id number] MEDICARE - [place] [id number] S [id number] Problems, Conditions, and Diagnoses Code Display Name Description Problem Type Effective Dates Data Source(s) Z48.02 Encounter for removal of sutures ENCOUNTER FOR R EMOVAL OF SUTURES Diagnosis 02/19/2021 10:30:00 AM T [facility] Z90.49 Acquired absence of other specified part s of digestive tract ACQUIRED ABSENCE OF OTHER SPECIFIED PARTS OF DIGES Diagnosis 02/17/2021 08:30:0 0 PM [facility] Z79.899 Other prison (current) drug therapy O THER ROUND UP RING HAND (CURRENT) DRUG THERAPY Diagnosis 02/17/2021 08:30:00 PM [facility] 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 ROUND UP RING HAND (CU RRENT) USE OF ASPIRIN Diagnosis 02/17/2021 08:30:00 PM [facility] Z79.51 exterminator helper termite (current) use of inhaled stero ids ROUND UP RING HAND (CURRENT) USE OF INHALED STEROIDS Diagnosis 02/17/2021 08:30:00 PM [facility] l I10 Essential (primary) hypertension ESSENTIAL (PRIMARY) H YPERTENSION Diagnosis 02/17/2021 08:30:00 PM [facility] J44.9 Chronic obstructive pulmonary disease, u nspecified CHRONIC OBSTRUCTIVE PULMONARY DISEASE, UNSPECIFIED Diagnosis 02/17/2021 08:30:00 PM [facility] F17.210 Nicotine dependence, cigarettes, uncompl icated NICOTINE DEPENDENCE, CIGARETTES, UNCOMPLICATED Diagnosis 02/17/2021 08:30:00 PM [facility] R20.2 Paresthesia of skin PARESTHESIA OF SKIN Diagnosis 0 02/17/2021 08:30:00 PM [facility] Y93.89 Activity, other specified ACTIVITY, OTHER SPECIFIED Di agnosis 02/10/2021 02:50:00 PM [facility] Y92.[address] in unspeci fied non-institutional (private) residence as the place of occurrence of the external cause UNSP PLACE IN [facility] NON-INSTITUT (PRIVATE) RESIDENC Diagnosis 02/10/2021 02:50:00 PM [facility] X58.XXXA Exposure to other specified factors, ini tial encounter EXPOSURE TO OTHER SPECIFIED FACTORS, INITIAL ENCOU Diagnosis 02/10/2021 02:50:00 P M [facility] S61.217A Laceration without foreign b dmitriy of left little finger without damage to nail, initial encounter LAC W/O FB OF L LITTLE FINGER W/O DAMAGE TO NAIL, Diagnosis 02/10/2021 02:50:00 PM [facility] S69.92XA Unspecified injury of left w rist, hand and finger(s), initial encounter UNSP INJURY OF LEFT WRIST, HAND AND FINGER(S), INIT ENCNTR D iagnosis 02/10/2021 02:50:00 PM EDT [facility] M25.562 Pain in left knee PAIN IN LEFT KNEE Diagnosis 11/20 09:30:00 PM EDT [facility] R92.8 [id number] Abnormal mammogram of left breast Problem 04/25/2021 12:00:00 AM EDT eCW1 ([facility]) [id number] Essential hypertension Essential hypertension Problem 03/22/2021 12:00:00 AM EDT MEDENT ([facility] ) R92.8 [id number] Abnormal mammogram of both breasts Proble m 03/08/2021 12:00:00 AM EDT eCW1 ([facility]) G89.29 [id number] Other chronic pain Problem 02/02/2021 12:00: 00 AM EDT eCW1 ([facility]) M54.41 [id number] Lumbago with sciatica, right side Prob sierra 02/02/2021 12:00:00 AM EDT eCW1 ([facility]) M54.42 [id number] Lumbago with sciatica, left side Problem 02/02/2021 12:00:00 AM EDT eCW1 ([facility]) G47.33 [id number] LUIZ (obstructive sleep apnea) Problem 01/04/2021 12:00:00 AM EDT eCW1 ([facility]) I10 [id number] HTN (hypertension), benign Problem 12:00:00 AM EDT eCW1 ([facility]) M10.9 [id number] Acute gout of left knee, unspecified c ause Problem 01/04/2021 12:00:00 AM EDT eCW1 ([facility]) F51.04 [id number] Psychophysiological insomnia Problem 01/04/2021 12:00:00 AM EDT eCW1 ([facility]) J44.9 [id number] Chronic obstructive pulmonary di sease, unspecified COPD type Problem 01/04/2021 12:00:00 AM EDT eCW1 ([facility]) F41.1 [id number] ANOOP (generalized anxiety disorder) Proble m 01/04/2021 12:00:00 AM EDT eC ([facility]) Surgeries/Procedures Procedure Description Date Indications Data Source(s) Strapping Foot Or Ankle 01/11/2021 12:00:00 AM EDT MEDENT ([facility] RADEX FOOT COMPLETE MINIMUM 3 VIEWS 01/11/2021 12:00:0 0 AM EDT MEDENT ([facility] Results ID Date Data Source [id number] 02/18/2021 08:19:00 AM EDT [facility] Patient: LIA NORIEGA Observation Repo rt - Phys[facility].VisitID: [id number] [place] [address] [phone], FRegistrabay[facility], [place] Date/Time: 02/17/2021 18:58 Weight:76.6 kg (S). Height/Length:67 inches (S). BMI:26.5 PAST HISTORYMedications:Advair Diskus Inhalation (Aerosol Powder Breath Activated 250-50 mcg/dose) 2 puffs , daily every AM, last dose today .Albuterol Sulfate Inhalation 1-2 puffs , as needed, before meals, last dose yesterday .Aspirin Oral (Tablet Chewable 81 mg) 1 tablet, daily, last dose today.FLUoxetine HCl Oral (Capsule 40 mg) 1 capsule, daily, last dose today .hydroCHLOROthiazide Oral (Tablet 12.5 mg) 1 tablet, daily every AM, last dose today .Incruse Ellipta Inhalation (Aerosol Powder Breath Activated 62.5 mcg/inh) 1 inhalation , daily every AM, last dose today .Losartan Potassium Oral (Tablet 50 mg) 1 tablet, daily every AM, last dose today .traZODone HCl Oral (Tablet 100 mg) 2 tablets, daily at bedtime, last dose last night .Vitamin D2 Oral (Tablet 50 MCG (2000 UT)) 1 tablet, once a week every AM, last dose today . Allergies:No Known Drug Allergy. FAMILY HISTORYNo significant family medical history. (Electronically signed by Christiano Roa N.P. 02/18/2021 08:16) Name Value Range Interpretation Code Description Data Viry rce(s) Supporting Document(s) ID Date Data Source [id number] 02/10/2021 07:47:00 PM EDT [facility] Patient: LIA NORIEGA Observation Repo rt [facility] [id number] [place] [address] [phone], FRegistration Date/Time: 02/10/2021 12:06 Weight:76.6 kg (S). Height/Length:67 inches (S). BMI:26.5 PAST HISTORYProblems:COPD - Chronic Obstructive Pulmonary Disease.Anxiety Reaction.Acute Pain.Hypertension.Depression. Additional Surgeries:Cholecystectomy.Kidney surgery . (Has 1/2 left kidney and all of her right kidney )Reconstructive toe surgery (right foot).Tonsillectomy. Medications:Aspirin Oral (Tablet Chewable 81 mg) 1 tablet, daily, last dose today.Advair Diskus Inhalation (Aerosol Powder Breath Activated 250-50 mcg/dose) 2 puffs , daily every AM, last dose today .Albuterol Sulfate Inhalation 1-2 puffs , as needed, before meals, last dose yesterday .FLUoxetine HCl Oral (Capsule 40 mg) 1 capsule, daily, last dose today .hydroCHLOROthiazide Oral (Tablet 12.5 mg) 1 tablet, daily every AM, last dose today .Incruse Ellipta Inhalation (Aerosol Powder Breath Activated 62.5 mcg/inh) 1 inhalation , daily every AM, last dose today .Losartan Potassium Oral (Tablet 50 mg) 1 tablet, daily every AM, last dose today .traZODone HCl Oral (Tablet 100 mg) 2 tablets, daily at bedtime, last dose last night .Vitamin D2 Oral (Tablet 50 MCG (1999 UT)) 1 tablet, once a week every AM, last dose today . Allergies:No Known Drug Allergy. FAMILY HISTORYNegative. No significant family medical history. (Electronically signed by Mansoor Grigsby 02/10/2021 19:09) Name Value Range Interpretation Code Description Data Viry rce(s) Supporting Document(s) ID Date Data Source PAP REQUEST FOR SERVICE 02/02/2021 12:00:00 AM EDT eCW1 ([facility]) Name Value Range Interpretation Code Description Data Viry rce(s) Supporting Document(s) PAP REQUEST FOR SERVICE eCW1 ( [facility]) ID Date Data Source URIC ACID 02/02/2021 12:00:00 AM EDT eCW1 ([facility]) Name Value Range Interpretation Code Description Data Viry rce(s) Supporting Document(s) 5.5 2.6-6.0 URIC ACID eCW1 ([facility]) ID Date Data Source Basic Metabolic Profile (BMP) 02/02/2021 12:00:00 AM EDT eCW 1 ([facility]) Name Value Range Interpretation Code Description Data Viry rce(s) Supporting Document(s) 19 7-18 BLOOD UREA NITROGEN eCW1 ([facility]) 110 70-100 GLUCOSE, FASTING eCW1 ([facility]) 1.10 0.55-1.30 CREATININE FOR GFR eCW1 ([facility]) 143 136-145 SODIUM LEVEL eCW1 ([facility]) 54.5 >51 GLOMERULAR FILTRATION RATE eCW 1 ([facility]) 106 98-107 CHLORIDE LEVEL eCW1 ([facility]) 5.1 3.5-5.1 POTASSIUM SERUM eCW1 (Former[facility]) 30 21-32 CARBON DIOXIDE LEVEL eCW1 (Critical access hospital) 9.8 8.5-10.1 CALCIUM LEVEL eCW1 ([facility]) ID Date Data Source LIPID PANEL (CARDIAC RISK) 01/04/2021 12:00:00 AM EDT eCW1 ( [facility]) Name Value Range Interpretation Code Description Data Viry rce(s) Supporting Document(s) Triglyceride [Mass/volume] in Serum or Plasma by calculation 92 <150 TRIGLYCERIDES LEVEL eCW1 ([facility]) Cholesterol [Moles/volume] in Serum or Plasma 238 <200 CHOLESTEROL LEVEL eCW1 ([facility]) Cholesterol in HDL [Moles/volume] in Serum or Plasma 90 >40 HDL CHOLESTEROL eCW1 ([facility]) 148 NON-HDL-C eCW1 ([facility]) 2.644 <5 CHOLESTEROL RISK RATIO eCW1 ([facility]) Cholesterol in LDL [Mass/volume] in Serum or Plasma by calculation 130 <100 LDL CHOLESTEROL eCW1 ([facility]) ID Date Data Source [id number] 01/04/2021 12:00:00 AM EDT eCW1 ([facility]) Name Value Range Interpretation Code Description Data Viry rce(s) Supporting Document(s) Hemoglobin A1c/Hemoglobin.total in Blood 5.2 HEMOGLOBIN A1c eCW1 ([facility]) ID Date Data Source FREE T4 & TSH PANEL 01/04/2021 12:00:00 AM EDT eCW1 ([facility]) Name Value Range Interpretation Code Description Data Viry rce(s) Supporting Document(s) 0.725 0.358-3.740 THYROID STIMULATING HORM ONE eCW1 ([facility]) 0.81 0.76-1.46 FREE T4 eCW1 ([facility]) ID Date Data Source Comprehensive Metabolic Profile (CMP) 01/04/2021 12:00:00 AM EDT eCW1 ([facility]) Name Value Range Interpretation Code Description Data Viry rce(s) Supporting Document(s) 15 7-18 BLOOD UREA NITROGEN eCW1 ([facility]) 124 70-100 GLUCOSE, FASTING eCW1 ([facility]) 1.17 0.55-1.30 CREATININE FOR GFR eCW1 ([facility]) 50.8 >51 GLOMERULAR FILTRATION RATE eCW 1 ([facility]) 4.3 3.5-5.1 POTASSIUM SERUM eCW1 ([facility]) 140 136-145 SODIUM LEVEL eCW1 ([facility]) 32 21-32 CARBON DIOXIDE LEVEL eCW1 (Critical access hospital) 104 98-107 CHLORIDE LEVEL eCW1 ([facility]) 9.9 8.5-10.1 CALCIUM LEVEL eCW1 ([facility]) 28 7-37 AST/SGOT eCW1 ([facility]) 0.4 0.2-1.0 BILIRUBIN,TOTAL eCW1 ([facility]) 33 12-78 ALT/SGPT eCW1 ([facility]) 84 45-117 ALKALINE PHOSPHATASE eCW1 (Critical access hospital) 1.1 1.2-2.2 ALBUMIN/GLOBULIN RATIO eCW1 ([facility]) 7.4 6.4-8.2 TOTAL PROTEIN eCW1 ([facility]) 3.8 3.2-5.2 ALBUMIN eCW1 ([facility]) ID Date Data Source CBC with Differential 01/04/2021 12:00:00 AM EDT eCW1 ([facility]) Name Value Range Interpretation Code Description Data Viry rce(s) Supporting Document(s) 4.4 4.0-10.0 WHITE BLOOD COUNT eCW1 ([facility]) 4.33 4.00-5.40 RED BLOOD COUNT eCW1 ([facility]) 13.7 12.0-15.5 HEMOGLOBIN eCW1 ([facility]) 95.6 80.0-96.0 MEAN CORPUSCULAR VOLUME e CW1 ([facility]) 41.4 36.0-47.0 HEMATOCRIT eCW1 ([facility]) 31.6 27.0-33.0 MEAN CORPUSCULAR HEMOGLOB IN eCW1 ([facility]) 33.1 32.0-36.5 MEAN CORPUSCULAR HGB CONC eCW1 ([facility]) 209 150-450 PLATELET COUNT, AUTOMATED eCW1 ([facility]) 13.8 11.5-14.5 RED CELL DISTRIBUTION WID TH eCW1 ([facility]) 41.4 24.0-44.0 LYMPH % eCW1 ([facility]) 12.7 2.0-8.0 MONO % eCW1 ([facility]) 44.1 36.0-66.0 NEUTROPHILS % eCW1 ([facility]) 0.9 0.0-3.0 EOS % eCW1 ([facility]) 2.0 1.5-8.5 NEUTROPHILS # eCW1 ([facility]) 0.7 0.0-1.0 BASO % eCW1 ([facility]) 1.8 1.5-5.0 LYMPH # eCW1 ([facility]) 0.6 0.0-0.8 MONO # eCW1 ([facility]) 0.0 0.0-0.5 EOS # eCW1 ([facility]) 0.0 0.0-0.2 BASO # eCW1 ([facility]) ID Date Data Source [id number] 11/20/2020 09:44:00 PM [facility]T [facility] DATE OF EXAMINATION: 11/20/2020 21:05 EDT HISTORY: Acute pain TECHNIQUE: AP and lateral views left knee were obtained. FINDINGS: There is no evidence for acute fracture or dislocation. No effusion. Milddegenerative changes include primarily medial joint space narrowing along withvery subtle spurring at the medial and lateral tibial plateau. IMPRESSION: Mild arthritic degenerative changes. Electronically signed in [id number] by: Amari Bedolla M.D. 11/20/2020 21:37 EDT Name Value Range Interpretation Code Description Data Viry rce(s) Supporting Document(s) ID Date Data Source [id number] 11/20/2020 10:09:00 PM EDT [facility] l TSYSORDER [id number] Name Value Range Interpretation Code Description Data Viry rce(s) Supporting Document(s) URIC ACID 6.4 mg/dL 2.6-6.0 H [facility] ID Date Data Source [id number] 11/20/2020 10:09:00 PM EDT [facility] l TSYSORDER [id number] Name Value Range Interpretation Code Description Data Viry rce(s) Supporting Document(s) GLUCOSE 97 mg/dL 74-106 [facility] BLOOD UREA NITROGEN 21 mg/dL 7-18 H [facility] ital CREATININE 1.10 mg/dL 0.6-1.0 H [facility] SODIUM 136 mmol/L 136-145 [facility] POTASSIUM 4.0 mmol/L 3.5-5.1 [facility] CHLORIDE 98 mmol/L 98-107 [facility] CO2 27 mmol/L 21-32 [facility] CALCIUM 9.7 mg/dL 8.5-10.1 [facility] ANION GAP 11.0 mmol/L 5-12 [facility] GLOMERULAR FILTRATION RATE 51 mL/min [facility] GFR IS CALCULATED IN mL/min/1.73m2 ODILON L FUNCTION: >90MILDLY DECREASED: 60-89MILDY TO MODERATELY DECREASED: 45-59 MODERATELY TO SEVERELY DECREASED: 30-44SEVERELY DECREASED: 15-29RENAL FAILURE: <15 AST 38 U/L 15-37 H [facility] ALT 39 U/L 12-78 [facility] ALKALINE PHOSPHATASE 85 U/L 46-116 [facility] pital TOTAL BILIRUBIN 0.4 mg/dL 0.2-1.0 [facility] TOTAL PROTEIN 7.6 g/dl 6.4-8.2 [facility] ALBUMIN 4.0 gm/dL 3.4-5.0 [facility] Procedure Social History Code Duration Value Status Description Data Source(s ) Smoking 02/02/2021 12:00:00 AM EDT Current Smoker completed Curre nt Smoker eCW1 ([facility]) Smoking 02/02/2021 12:00:00 AM EDT Current Smoker completed Curre nt Smoker eCW1 ([facility]) Smoking 02/02/2021 12:00:00 AM EDT Current Smoker completed Curre nt Smoker eCW1 ([facility]) Smoking 02/02/2021 12:00:00 AM EDT Current Smoker completed Curre nt Smoker eCW1 ([facility]) Smoking 02/02/2021 12:00:00 AM EDT Current Smoker completed Curre nt Smoker eCW1 ([facility]) Smoking 02/02/2021 12:00:00 AM EDT Current Smoker completed Curre nt Smoker eCW1 ([facility]) Smoking 02/02/2021 12:00:00 AM EDT Current Smoker completed Curre nt Smoker eCW1 ([facility]) Smoking 02/02/2021 12:00:00 AM EDT Current Smoker completed Curre nt Smoker eCW1 ([facility]) Smoking 01/04/2021 12:00:00 AM EDT Current Smoker completed Curre nt Smoker eCW1 ([facility]) Smoking 01/04/2021 12:00:00 AM EDT Current Smoker completed Curre nt Smoker eCW1 ([facility]) Vital Signs ID Date Data Source UNK Name Value Range Interpretation Code Description Data Source(s) Systolic blood pressure 112 mm[Hg] 112 mm[Hg] M EDENT ([facility]) Diastolic blood pressure 72 mm[Hg] 72 mm[Hg] MEDENT ([facility]) Body height 66.5 [in_i] 66.5 [in_i] [facility] ([facility]) 5'6.50" Body weight 166.00 [lb_av] 166.00 [lb_av] MEDEN T ([facility]) Body mass index (BMI) [Ratio] 26.4 kg/m2 26.4 k g/m2 [facility] ([facility]) [place] body weight 130 [lb_av] 130 [lb_av] [facility] Body weight 75.298 kg 75.298 kg [facility] ([facility]) Body surface area Derived from formula 1.86 m2 1.86 m2 [facility] ([facility]) Body weight 169.12 [lb_av] 169.12 [lb_av] eCW1 ([facility]) Body height 67 [in_i] 67 [in_i] eCW1 ([facility]) Body mass index (BMI) [Ratio] 26.49 kg/m2 26.49 kg/m2 W1 ([facility]) Heart rate 74 /min 74 /min eCW1 ([facility]) Respiratory rate 18 /min 18 /min eCW1 ([facility]) Body temperature 97.9 [degF] 97.9 [degF] eCW1 ( [facility]) Systolic blood pressure 120 mm[Hg] 120 mm[Hg] e CW1 ([facility]) Diastolic blood pressure 70 mm[Hg] 70 mm[Hg] eCW1 ([facility]) Body height 67 [in_i] 67 [in_i] MEDENT [facility] 5'7" Body weight 169.00 [lb_av] 169.00 [lb_av] MEDEN T ([facility] Systolic blood pressure 119 mm[Hg] 119 mm[Hg] M EDENT ([facility] Diastolic blood pressure 74 mm[Hg] 74 mm[Hg] MEDENT ([facility] Heart rate 75 /min 75 /min MEDENT ([facility] Body mass index (BMI) [Ratio] 26.5 kg/m2 26.5 k g/m2 MEDENT ([facility] Body weight 169.4 [lb_av] 169.4 [lb_av] eCW1 ([facility]) Body height 67 [in_i] 67 [in_i] eCW1 ([facility]) Body mass index (BMI) [Ratio] 26.53 kg/m2 26.53 kg/m2 W1 ([facility]) Heart rate 75 /min 75 /min eCW1 ([facility]) Respiratory rate 16 /min 16 /min eCW1 ([facility]) Body temperature 98.2 [degF] 98.2 [degF] eCW1 ( [facility]) Systolic blood pressure 119 mm[Hg] 119 mm[Hg] e CW1 ([facility]) Diastolic blood pressure 74 mm[Hg] 74 mm[Hg] eCW1 ([facility]) Patient Treatment Plan of Care Planned Activity Planned Date Details Description Data Source (s) Clonazepam 0.5 MG Oral Tablet 04/11/2021 12:00:00 AM EDT eCW1 ([facility]) Clonazepam 0.5 MG Oral Tablet 04/11/2021 12:00:00 AM EDT eCW1 ([facility]) Clonazepam 0.5 MG Oral Tablet 03/14/2021 12:00:00 AM EDT eCW1 ([facility]) Clonazepam 0.5 MG Oral Tablet 03/10/2021 12:00:00 AM EDT eCW1 ([facility]) Prednisone 20 MG Oral Tablet 01/05/2021 12:00:00 AM EDT eCW1 ([facility]) Prednisone 20 MG Oral Tablet 01/05/2021 12:00:00 AM EDT eCW1 ([facility])
--- OUTSIDE RECORDS SUMMARY | 2021-05-16 12:10 | CCD ---
Author Author [facility] Organization [facility] Address Unknown Phone Unavailable Care Team Providers Care Vul[employer] Plate Name Role Phone Fabienne Muñoziffer Unavailable PROBLEMS Type Condition ICD9-CM Code [id number] Code Onset Dates Condition S tatus W/U Status Risk SNOMED Code Notes Problem Acute gout of left knee, unspecified cause M10.9 Active confirmed [id number] Problem HTN (hypertension), benign I10 Active confirmed 04333205 Problem ANOOP (generalized anxiety disorder) F41.1 Activ e confirmed 03362635 Problem Lumbago with sciatica, right side M54.41 Active confirmed [id number] Problem Other chronic pain G89.29 Active confirmed 8 7132158 Problem Chronic obstructive pulmonary disease, unspecified COPD ty pe J44.9 Active confirmed 83925163 Problem Psychophysiological insomnia F51.04 Active confirme d [id number] Problem LUIZ (obstructive sleep apnea) G47.33 Active confirm ed 04555216 Problem Lumbago with sciatica, left side M54.42 Active confirmed 281451976 ALLERGIES No Known Allergies ENCOUNTERS from 1965 to 2021-03-02 Encounter Location Date Provider Diagnosis [facility] [phone] [place] [address] Jan, Aissatou Muñoz IMMUNIZATIONS No Information SOCIAL HISTORY Tobacco Use: Social History Observation Description Date Details (start date - stop date) Current Smoker Sex Assigned At : Social History Observation Description Sex Assigned At Unknown Audit Question Answer Notes Total Score: 2 Interpretation: Alcohol Education Orthodox: Question Answer Notes Orthodox No pentecostalism beliefs that would impact health care. Drug [...] DAY for 90 Active Ergocalciferol 1.25 MG (02752 UT) 1 capsule Orally weekly Active Incruse Ellipta 62.5 MCG/INH 1 puff Inhalation Once a day Active clonazePAM 0.5 MG 1 tablet at bedtime Orally three times per day for 30 Days Active Multivitamin Adult Active Fluticasone Propionate 50 MCG/ACT 1 spray [...] Information RESULTS No Results REASON FOR VISIT referral MEDICAL (GENERAL) HISTORY Type Description Date Medical History COPD Medical History HTN Medical History Gout Medical History Insomnia Medical History Anxiety Medical History Sciatic nerve damage Surgical History Reconstructive right great toe 1990s Surgical History Mass removed from left breast - benign 1 980s Surgical History Left kidney partial removal 2019 Surgical History Cholecystectomy Surgical History Colonoscopy: polyp removal 2016 Hospitalization History Surgery Goals Section No Information Health Concerns No Information MEDICAL EQUIPMENT No Information MENTAL STATUS No Information FUNCTIONAL STATUS No Information ASSESSMENTS No Information PLAN OF TREATMENT Medication Medication Name Sig Start Date Stop Date PROzac 40 MG 1 capsule Orally Once a day clonazePAM 0.5 MG 1 tablet at bedtime Orally three times per day for 30 Days traZODone HCl 100 MG [...] Details Provider Name:Aissatou Muñoz, 2020-07 09:00:00 AM, [address] , , [place], [place], [id number], Insurance Providers Payer Name Payer Address Payer Phone Insured Name Patient Relati onship to Insured Coverage Start Date Coverage End Date [employer]NA MEDICARE [employer] [address] [facility] [id number] LIA NORIEGA self
[2021-05-16] MEDS ORDERED: VITACAP31 PO (12:54)
[2021-05-16] MEDS ORDERED: ECOT81TA5 PO (12:54)
[2021-05-16] MEDS ORDERED: VITMTA PO (12:54)
[2021-05-16] MEDS ORDERED: APPLCAP PO (12:54)
[2021-05-16] MEDS ORDERED: VITA100065 PO (12:54)
[2021-05-16] MEDS ORDERED: LOSA50TA88 PO (12:54)
[2021-05-16] MEDS ORDERED: propofoL 200 MG/20 ML VIAL As Ordered ONE (13:58)
[2021-05-16] MEDS ORDERED: LIDOCAINE 2% 100MG/5ML SDV (FOR ANES.) As Ordered ONE (13:58)
[2021-05-16] MEDS ORDERED: fentaNYL 100 MCG/2 ML INJECTION (J3010) As Ordered ONE (13:59)
--- NOTE | 2021-05-16 14:49 | ROOR ---
Patient Name: Sapphire Cline Procedure Date: 05/16/2021 1:54 PM Date of : 1965 Age: 56 Room: [facility] Gender: Female Note Status: Finalized Procedure: Upper GI endoscopy Indications: Heartburn Providers: Adriel Cardenas MD Referring MD: Aissatou Muñoz NP Requesting Provider: Medicines: Monitored Anesthesia Care Complications: No immediate complications. Procedure: Pre-Anesthesia Assessment: - Prior to the procedure, a History and Physical was performed, and patient medications and allergies were reviewed. The patient is competent. The risks and benefits of the procedure and the sedation options and risks were discussed with the patient. All questions were answered and informed consent was obtained. Patient identification and proposed procedure were verified by the physician, the nurse and the anesthesiologist in the procedure room. Mental Status Examination: alert and oriented. Airway Examination: normal oropharyngeal airway and neck mobility. Respiratory Examination: clear to auscultation. CV Examination: normal. Prophylactic Antibiotics: The patient does not require prophylactic antibiotics. Prior Anticoagulants: The patient has taken no previous anticoagulant or antiplatelet agents. ASA Grade Assessment: II - A patient with mild systemic disease. After reviewing the risks and benefits, the patient was deemed in satisfactory condition to undergo the procedure. The anesthesia plan was to use monitored anesthesia care (MAC). Immediately prior to administration of medications, the patient was re-assessed for adequacy to receive sedatives. The heart rate, respiratory rate, oxygen saturations, blood pressure, adequacy of pulmonary ventilation, and response to care were monitored throughout the procedure. The physical status of the patient was re-assessed after the procedure. The Endoscope was introduced through the mouth, and advanced to the second part of duodenum. The upper GI endoscopy was accomplished without difficulty. The patient tolerated the procedure well. Findings: The Z-line was regular and was found 39 cm from the incisors. The examined esophagus was normal. A 20 mm scar was found in the gastric antrum. Adjacent mucosal findings include congestion, friability and nodularity. Biopsies were taken with a cold forceps for histology. Verification of patient identification for the specimen was done by the physician and nurse using the patient's name, date and medical record number. Estimated blood loss was minimal. Scattered moderate inflammation characterized by erythema and granularity was found in the gastric body and in the gastric antrum. Biopsies were taken with a cold forceps for Helicobacter pylori testing. The duodenal bulb and second portion of the duodenum were normal. Impression: - Z-line regular, 39 cm from the incisors. - Normal esophagus. - Scar in the gastric antrum. Biopsied. - Gastritis. Biopsied. - Normal duodenal bulb and second portion of the duodenum. Recommendation: - Patient has a contact number available for emergencies. The signs and symptoms of potential delayed complications were discussed with the patient. Return to normal activities tomorrow. Written discharge instructions were provided to the patient. - High fiber diet. - Continue present medications. - Await pathology results. - Follow an antireflux regimen. - Telephone GI clinic for pathology results in 2 weeks. - Return to GI clinic if persistent symptoms or new symptoms. - Return to primary care physician. Procedure Code(s): --- Professional --- 20742, Esophagogastroduodenoscopy, flexible, transoral; with biopsy, single or multiple Diagnosis Code(s): --- Professional --- K31.89, Other diseases of stomach and duodenum K29.70, Gastritis, unspecified, without bleeding R12, Heartburn CPT copyright 2019 [employer]. All rights reserved. The codes documented in this report are preliminary and upon circus trainer review may be revised to meet current compliance requirements. Adriel Cardenas MD Adriel Cardenas MD 05/16/2021 2:49:07 PM Electronically signed by Adriel Cardenas MD Number of Addenda: 0 Note Initiated On: 05/16/2021 1:54 PM Estimated Blood Loss: Estimated blood loss was minimal.
[2021-05-16 14:55] VITALS: BP 130/79
--- NOTE | 2021-05-16 15:02 | ROOR ---
Patient Name: Sapphire Cline Procedure Date: 05/16/2021 1:55 PM Date of : 1965 Age: 56 Room: [facility] Gender: Female Note Status: Finalized Procedure: Colonoscopy Indications: High risk colon cancer surveillance: Personal history of colonic polyps Providers: Adriel Cardenas MD Referring MD: Aissatou Muñoz NP Requesting Provider: Medicines: Monitored Anesthesia Care Complications: No immediate complications. Procedure: Pre-Anesthesia Assessment: - Prior to the procedure, a History and Physical was performed, and patient medications and allergies were reviewed. The patient is competent. The risks and benefits of the procedure and the sedation options and risks were discussed with the patient. All questions were answered and informed consent was obtained. Patient identification and proposed procedure were verified by the physician, the nurse and the anesthesiologist in the procedure room. Mental Status Examination: alert and oriented. Airway Examination: normal oropharyngeal airway and neck mobility. Respiratory Examination: clear to auscultation. CV Examination: normal. Prophylactic Antibiotics: The patient does not require prophylactic antibiotics. Prior Anticoagulants: The patient has taken no previous anticoagulant or antiplatelet agents. ASA Grade Assessment: II - A patient with mild systemic disease. After reviewing the risks and benefits, the patient was deemed in satisfactory condition to undergo the procedure. The anesthesia plan was to use monitored anesthesia care (MAC). Immediately prior to administration of medications, the patient was re-assessed for adequacy to receive sedatives. The heart rate, respiratory rate, oxygen saturations, blood pressure, adequacy of pulmonary ventilation, and response to care were monitored throughout the procedure. The physical status of the patient was re-assessed after the procedure. The Colonoscope was introduced through the anus and advanced to the terminal ileum, with identification of the appendiceal orifice and IC valve. The colonoscopy was performed without difficulty. The patient tolerated the procedure well. The quality of the bowel preparation was good. The terminal ileum, ileocecal valve, appendiceal orifice, and rectum were photographed. Scope insertion time was 2 minutes. Scope withdrawal time was 9 minutes. The total duration of the procedure was 12 minutes. Findings: The perianal and digital rectal examinations were normal. The terminal ileum appeared normal. A 4 mm polyp was found in the sigmoid colon. The polyp was sessile. The polyp was removed with a cold snare. Resection and retrieval were complete. Verification of patient identification for the specimen was done by the physician and nurse using the patient's name, date and medical record number. Estimated blood loss was minimal. Multiple small and large-mouthed diverticula were found from sigmoid to descending colon. There was no evidence of diverticular bleeding. Non-bleeding external and internal hemorrhoids were found during retroflexion. The hemorrhoids were small. Impression: - The examined portion of the ileum was normal. - One 4 mm polyp in the sigmoid colon, removed with a cold snare. Resected and retrieved. - Moderate diverticulosis from sigmoid to descending colon. There was no evidence of diverticular bleeding. - Non-bleeding external and internal hemorrhoids. Recommendation: - Patient has a contact number available for emergencies. The signs and symptoms of potential delayed complications were discussed with the patient. Return to normal activities tomorrow. Written discharge instructions were provided to the patient. - High fiber diet. - Continue present medications. - Await pathology results. - Repeat colonoscopy in 5-10 years for surveillance based on pathology results. - Use original regular Metamucil one tablespoon PO daily for atleast 7 days and then adjust dose to have one to two soft bowel movements daily. - Telephone GI clinic for pathology results in 2 weeks. - Return to GI clinic if persistent symptoms or new symptoms. - Return to primary care physician. Procedure Code(s): --- Professional --- 09373, Colonoscopy, flexible; with removal of tumor(s), polyp(s), or other lesion(s) by snare technique Diagnosis Code(s): --- Professional --- Z86.010, Personal history of colonic polyps K64.8, Other hemorrhoids K63.5, Polyp of colon K57.30, Diverticulosis of large intestine without perforation or abscess without bleeding CPT copyright 2019 [employer]. All rights reserved. The codes documented in this report are preliminary and upon carriage operator review may be revised to meet current compliance requirements. Adriel Cardenas MD Adriel Cardenas MD 05/16/2021 3:02:06 PM Electronically signed by Adriel Cardenas MD Number of Addenda: 0 Note Initiated On: 05/16/2021 1:55 PM Estimated Blood Loss: Estimated blood loss was minimal.
== END 2021-05-16 15:23 | disposition home or self-care (01) ==
LOC: M OPP 12:06
PROVIDERS: ATTEND Internal Medicine Gastroenterology
DX: Z12.11 Encounter for screening for malignant neoplasm of colon (principal); Z86.010 Personal history of colon polyps; Z80.0 Family history of malignant neoplasm of digestive organs; K63.5 Polyp of colon; K57.30 Diverticulosis of large intestine without perforation or abscess without bleeding; K64.8 Other hemorrhoids; K31.89 Other diseases of stomach and duodenum; K29.70 Gastritis, unspecified, without bleeding; R12 Heartburn; Z79.82 Long term (current) use of aspirin; Z79.899 Other long term (current) drug therapy; Z80.8 Family history of malignant neoplasm of other organs or systems; F17.210 Nicotine dependence, cigarettes, uncomplicated
CPT/HCPCS: 43239; 45385; 88305; J3010

== ENCOUNTER → 2021-07-25 | Outpatient (REF) | payer MEDICARE ==
[~2021-07-25] MED LIST changes: +APPLCAP PO; +ECOT81TA5 PO; +FLUO-96 PO; -FLUO20CA20 PO; +LOSA50TA28 PO; -NS 1,000 ML IV ONE; +VITA100065 PO; +VITACAP31 PO; +VITMTA PO
== END ==
LOC: M SFHCCLAY 11:12
PROVIDERS: ATTEND Nurse Practitioner Family
DX: R05.9 Cough, unspecified (principal)

== ENCOUNTER → 2022-04-24 | Outpatient (REF) | payer MEDICARE ==
[2022-04-24 17:31] LABS: BASO % 0.7 % (0.0-1.0); EOS % 0.7 % (0.0-3.0); HEMATOCRIT 36.4 % (36.0-47.0); HEMOGLOBIN 12.4 g/dl (12.0-15.5); LYMPH # 2.2 10^3/uL (1.5-5.0); LYMPH % 51.9 % (24.0-44.0); MEAN CORPUSCULAR HEMOGLOBIN 33.2 pg (27.0-33.0); MEAN CORPUSCULAR HGB CONC 34.1 g/dl (32.0-36.5); MEAN CORPUSCULAR VOLUME 97.3 fl (80.0-96.0); MONO # 0.4 10^3/uL (0.0-0.8); MONO % 10.3 % (2.0-8.0); NEUTROPHILS # 1.5 10^3/uL (1.5-8.5); NEUTROPHILS % 36.4 % (36.0-66.0); PLATELET COUNT, AUTOMATED 183 10^3/uL (150-450); RED BLOOD COUNT 3.74 10^6/uL (4.00-5.40); WHITE BLOOD COUNT 4.2 10^3/uL (4.0-10.0)
[2022-04-24 19:11] LABS: ALBUMIN 3.6 GM/DL (3.2-5.2); BILIRUBIN,TOTAL 0.5 MG/DL (0.2-1.0); CALCIUM LEVEL 9.3 MG/DL (8.5-10.1); CHOLESTEROL RISK RATIO 2.172 (<5); CREATININE FOR GFR 1.21 MG/DL (0.55-1.30); FREE T4 0.83 NG/DL (0.76-1.46); GLOMERULAR FILTRATION RATE 48.5 (>51); POTASSIUM SERUM 4.7 MEQ/L (3.5-5.1); THYROID STIMULATING HORMONE 0.442 uIU/ML (0.358-3.740); TOTAL PROTEIN 6.7 GM/DL (6.4-8.2)
[2022-04-24 19:53] LABS: HEMOGLOBIN A1c 5.2 %
== END ==
LOC: M SFHCCLAY 12:03
PROVIDERS: ATTEND Nurse Practitioner Family
DX: F41.1 Generalized anxiety disorder (principal); I10 Essential (primary) hypertension; F51.04 Psychophysiologic insomnia; M10.9 Gout, unspecified; M79.672 Pain in left foot; Z13.1 Encounter for screening for diabetes mellitus; Z79.899 Other long term (current) drug therapy

== ENCOUNTER → 2022-04-24 | Outpatient (CLI) | payer MEDICARE | LOC: M CLY 12:57 | PROVIDERS: ATTEND Nurse Practitioner Family | DX: M25.551 Pain in right hip (principal); M25.552 Pain in left hip ==

== ENCOUNTER → 2022-05-12 | Outpatient (CLI) | payer MEDICARE | LOC: M SOG 07:58 | PROVIDERS: ATTEND Orthopaedic Surgery Adult Reconstructive Orthopaedic Surgery | DX: M89.9 Disorder of bone, unspecified (principal); M25.551 Pain in right hip; M25.552 Pain in left hip ==

== ENCOUNTER → 2022-06-02 | Outpatient (CLI) | payer MEDICARE ==
[~2022-06-02] MED LIST changes: +BUPIVACAINE HCL 0.5% 10ML VIAL As Ordered ONE; +LIDOCAINE 1% MDV 20ML VIAL As Ordered ONE; +methylPREDNISolone 80MG/ML SUSP 1ML VIAL (J1040) As Ordered ONE
== END ==
LOC: M IRPRO 12:30
PROVIDERS: ATTEND Orthopaedic Surgery Adult Reconstructive Orthopaedic Surgery
DX: M70.61 Trochanteric bursitis, right hip (principal); M70.62 Trochanteric bursitis, left hip
CPT/HCPCS: 20610; J1040

== ENCOUNTER → 2022-10-20 | Outpatient (CLI) | payer MEDICARE ==
[~2022-10-20] MED LIST changes: -BUPIVACAINE HCL 0.5% 10ML VIAL As Ordered ONE; -LIDOCAINE 1% MDV 20ML VIAL As Ordered ONE; -methylPREDNISolone 80MG/ML SUSP 1ML VIAL (J1040) As Ordered ONE
== END ==
LOC: M RAD 07:32
PROVIDERS: ATTEND Orthopaedic Surgery Adult Reconstructive Orthopaedic Surgery
DX: M54.41 Lumbago with sciatica, right side (principal); M54.42 Lumbago with sciatica, left side

== ENCOUNTER → 2022-11-08 | Outpatient (CLI) | payer MEDICARE | LOC: M PLAIMG 11:40 | PROVIDERS: ATTEND Nurse Practitioner Family | DX: G44.52 New daily persistent headache (NDPH) (principal) ==

== ENCOUNTER → 2022-12-06 | Outpatient (CLI) | payer MEDICARE | LOC: M WHC 15:03 | PROVIDERS: ATTEND Nurse Practitioner Family | DX: Z12.31 Encounter for screening mammogram for malignant neoplasm of breast (principal) ==

== ENCOUNTER → 2023-01-02 | Outpatient (CLI) | payer MEDICARE | LOC: M CLY 11:35 | PROVIDERS: ATTEND Nurse Practitioner Family | DX: J44.9 Chronic obstructive pulmonary disease, unspecified (principal); R91.8 Other nonspecific abnormal finding of lung field ==

== ENCOUNTER → 2023-01-02 | Outpatient (REF) | payer MEDICARE ==
[2023-01-02 19:22] LABS: BASO % 0.6 % (0.0-1.0); EOS # 0.1 10^3/uL (0.0-0.5); HEMOGLOBIN 12.8 g/dl (12.0-15.5); LYMPH # 2.1 10^3/uL (1.5-5.0); LYMPH % 43.1 % (24.0-44.0); MEAN CORPUSCULAR HEMOGLOBIN 32.5 pg (27.0-33.0); MEAN CORPUSCULAR VOLUME 101.5 fl (80.0-96.0); MONO # 0.5 10^3/uL (0.0-0.8); MONO % 10.5 % (2.0-8.0); NEUTROPHILS # 2.2 10^3/uL (1.5-8.5); NEUTROPHILS % 44.6 % (36.0-66.0); PLATELET COUNT, AUTOMATED 173 10^3/uL (150-450); RED BLOOD COUNT 3.94 10^6/uL (4.00-5.40); WHITE BLOOD COUNT 4.9 10^3/uL (4.0-10.0)
[2023-01-02 19:34] LABS: HEMOGLOBIN A1c 4.4 % (4.0-6.0)
[2023-01-02 19:49] LABS: THYROID STIMULATING HORMONE 1.324 uIU/ML (0.55-4.78)
[2023-01-02 19:50] LABS: ALBUMIN 3.9 G/DL (3.2-5.2); ALKALINE PHOSPHATASE 87 U/L (46-116); ALT/SGPT 40 U/L (7.0-40); AST/SGOT 48 U/L (<34); BILIRUBIN,TOTAL 0.5 MG/DL (0.3-1.2); BLOOD UREA NITROGEN 20 MG/DL (9-23); CALCIUM LEVEL 9.3 MG/DL (8.5-10.1); CARBON DIOXIDE LEVEL 28 MMOL/L (20-31); CHLORIDE LEVEL 108 MMOL/L (98-107); CHOLESTEROL LEVEL 213 MG/DL (<200); CHOLESTEROL RISK RATIO 2.37 (<5); CREATININE FOR GFR 0.94 MG/DL (0.55-1.30); FREE T4 1.01 NG/DL (0.89-1.76); GLOMERULAR FILTRATION RATE > 60.0 (>51); GLUCOSE, FASTING 96 MG/DL (60-100); HDL CHOLESTEROL 89.8 MG/DL (>40); NON-HDL-C 123.2 MG/DL; POTASSIUM SERUM 4.6 MMOL/L (3.5-5.1); SODIUM LEVEL 143 MMOL/L (136-145); TOTAL PROTEIN 6.9 G/DL (5.7-8.2); TRIGLYCERIDES LEVEL 131 MG/DL (<150)
== END ==
LOC: M SFHCCLAY 11:30
PROVIDERS: ATTEND Nurse Practitioner Family
DX: M10.9 Gout, unspecified (principal); M79.672 Pain in left foot; I10 Essential (primary) hypertension; F41.1 Generalized anxiety disorder; F51.04 Psychophysiologic insomnia; Z13.1 Encounter for screening for diabetes mellitus; Z79.899 Other long term (current) drug therapy

== ENCOUNTER → 2023-09-27 | Outpatient (REF) | payer MEDICARE ==
[2023-09-27 19:00] LABS: BASO # 0.1 10^3/uL (0.0-0.2); EOS % 0.2 % (0.0-3.0); HEMATOCRIT 42.5 % (36.0-47.0); HEMOGLOBIN 14.1 g/dl (12.0-15.5); LYMPH % 42.5 % (24.0-44.0); MEAN CORPUSCULAR HEMOGLOBIN 32.1 pg (27.0-33.0); MEAN CORPUSCULAR HGB CONC 33.2 g/dl (32.0-36.5); MEAN CORPUSCULAR VOLUME 96.8 fl (80.0-96.0); MONO # 0.5 10^3/uL (0.0-0.8); MONO % 9.6 % (2.0-8.0); NEUTROPHILS # 2.2 10^3/uL (1.5-8.5); NEUTROPHILS % 46.5 % (36.0-66.0); PLATELET COUNT, AUTOMATED 193 10^3/uL (150-450); RED BLOOD COUNT 4.39 10^6/uL (4.00-5.40); WHITE BLOOD COUNT 4.8 10^3/uL (4.0-10.0)
[2023-09-27 19:08] LABS: ALBUMIN 3.9 G/DL (3.2-5.2); BILIRUBIN,TOTAL 0.5 MG/DL (0.3-1.2); CHOLESTEROL RISK RATIO 2.33 (<5); CREATININE FOR GFR 1.08 MG/DL (0.55-1.30); FREE T4 0.92 NG/DL (0.89-1.76); GLOMERULAR FILTRATION RATE 55.1 (>45); HDL CHOLESTEROL 85.4 MG/DL (>40); NON-HDL-C 113.6 MG/DL; TOTAL PROTEIN 7.1 G/DL (5.7-8.2)
[2023-09-27 19:09] LABS: THYROID STIMULATING HORMONE 0.631 uIU/ML (0.55-4.78)
== END ==
LOC: M SFHCCLAY 11:33
PROVIDERS: ATTEND Nurse Practitioner Family
DX: F41.1 Generalized anxiety disorder (principal); I10 Essential (primary) hypertension; F51.04 Psychophysiologic insomnia; M10.9 Gout, unspecified; Z13.1 Encounter for screening for diabetes mellitus; Z79.899 Other long term (current) drug therapy

== ENCOUNTER → 2023-10-25 | Outpatient (REF) | payer MEDICARE, OTHER ==
[2023-10-25 19:24] LABS: APPEARANCE, URINE CLOUDY (CLEAR); BACTERIA, URINE AUTO NEGATIVE (NEGATIVE); BILIRUBIN, URINE AUTO NEGATIVE (NEGATIVE); BLOOD, URINE BLOOD NEGATIVE (NEGATIVE); COLOR, URINE AMBER (YELLOW); GLUCOSE, URINE (UA) AUTO NEGATIVE (NEGATIVE); KETONE, URINE AUTO NEGATIVE (NEGATIVE); LEUKOCYTE ESTERASE, URINE AUTO NEGATIVE (NEGATIVE); MUCUS, URINE SMALL (NEGATIVE); NITRITE, URINE AUTO NEGATIVE (NEGATIVE); PROTEIN, URINE AUTO NEGATIVE (NEGATIVE); RBC, URINE AUTO 0 /HPF (0-3); SPECIFIC GRAVITY URINE AUTO 1.019 (1.002-1.035); SQUAMOUS EPITHELIAL CELL UR AU 1 /HPF (0-6); UROBILINOGEN, URINE AUTO 0.2 mg/dL (0.0-2.0); WBC, URINE AUTO 0 /HPF (0-3)
== END ==
LOC: M SMT 16:47
PROVIDERS: ATTEND Nurse Practitioner Family
DX: R10.9 Unspecified abdominal pain (principal)

== ENCOUNTER → 2023-11-06 | Outpatient (CLI) | payer MEDICARE ==
[~2023-11-06] MED LIST changes: +ISOVUE-370 76% 100ML VIAL As Ordered ONE
== END ==
LOC: M RAD 13:18
PROVIDERS: ATTEND Nurse Practitioner Family
DX: N20.0 Calculus of kidney (principal); N28.1 Cyst of kidney, acquired
CPT/HCPCS: 74178; Q9967

== ENCOUNTER 2023-12-14 07:32 | Day surgery (SDC) | payer MEDICARE ==
[~2023-12-14] VITALS: Ht 167.6 cm; Wt 66.7 kg
[~2023-12-14 07:32] MED LIST changes: +FLUT1BLS8 INH; -ISOVUE-370 76% 100ML VIAL As Ordered ONE; +NS 1,000 ML IV ONE; +VITA90CA4 PO
[2023-12-14] MEDS ORDERED: PREG100CA PO (07:54)
[2023-12-14] MEDS ORDERED: propofoL 500 MG/50 ML VIAL As Ordered ONE (08:48)
[2023-12-14] MEDS ORDERED: fentaNYL 100 MCG/2 ML INJECTION As Ordered ONE (08:48)
[2023-12-14] MEDS ORDERED: LIDOCAINE 2% 100MG/5ML SDV (FOR ANES.) As Ordered ONE (08:48)
[2023-12-14 10:20] VITALS: BP 135/75; TEMP 96.3; O2SAT 97
== END 2023-12-14 10:40 | disposition home or self-care (01) ==
LOC: M OPP 07:32
PROVIDERS: ATTEND Internal Medicine Gastroenterology
DX: K63.5 Polyp of colon (principal); K64.8 Other hemorrhoids; K57.30 Diverticulosis of large intestine without perforation or abscess without bleeding; K64.4 Residual hemorrhoidal skin tags; K31.89 Other diseases of stomach and duodenum; K29.80 Duodenitis without bleeding; K29.50 Unspecified chronic gastritis without bleeding; R63.4 Abnormal weight loss; K22.4 Dyskinesia of esophagus; K59.09 Other constipation; R63.0 Anorexia; I10 Essential (primary) hypertension; J44.9 Chronic obstructive pulmonary disease, unspecified; G47.30 Sleep apnea, unspecified; M10.9 Gout, unspecified; Z79.899 Other long term (current) drug therapy; Z79.82 Long term (current) use of aspirin; Z90.5 Acquired absence of kidney; Z87.891 Personal history of nicotine dependence; Z79.51 Long term (current) use of inhaled steroids
CPT/HCPCS: 43239; 45385; 88305; J3010

== ENCOUNTER → 2024-01-17 | Outpatient (CLI) | payer MEDICARE ==
[~2024-01-17] MED LIST changes: -NS 1,000 ML IV ONE; +PREG100CA PO
== END ==
LOC: M SLEEP 20:00
PROVIDERS: ATTEND Nurse Practitioner Adult Health
DX: G47.33 Obstructive sleep apnea (adult) (pediatric) (principal)

== ENCOUNTER → 2024-02-29 | Outpatient (CLI) | payer MEDICARE | LOC: M WHC 13:30 | PROVIDERS: ATTEND Nurse Practitioner Family | DX: Z12.31 Encounter for screening mammogram for malignant neoplasm of breast (principal) ==

== ENCOUNTER → 2024-07-14 | Outpatient (REF) | payer MEDICARE | LOC: M LAB REF 12:38 | PROVIDERS: ATTEND Nurse Practitioner Adult Health | DX: J44.9 Chronic obstructive pulmonary disease, unspecified (principal) ==

== ENCOUNTER → 2024-07-15 | Outpatient (CLI) | payer MEDICARE | LOC: M RAD 14:23 | PROVIDERS: ATTEND Nurse Practitioner Family | DX: Z12.2 Encounter for screening for malignant neoplasm of respiratory organs (principal); F17.218 Nicotine dependence, cigarettes, with other nicotine-induced disorders; I70.0 Atherosclerosis of aorta; I25.10 Atherosclerotic heart disease of native coronary artery without angina pectoris; N20.0 Calculus of kidney; R91.8 Other nonspecific abnormal finding of lung field ==

== ENCOUNTER → 2024-07-16 | Outpatient (REF) | payer MEDICARE ==
[2024-07-16 17:38] LABS: BASO % 0.5 % (0.0-1.0); EOS % 0.2 % (0.0-3.0); HEMOGLOBIN 12.5 g/dl (12.0-15.5); LYMPH # 3.2 10^3/uL (1.5-5.0); LYMPH % 48.3 % (24.0-44.0); MEAN CORPUSCULAR HEMOGLOBIN 32.3 pg (27.0-33.0); MEAN CORPUSCULAR HGB CONC 32.9 g/dl (32.0-36.5); MEAN CORPUSCULAR VOLUME 98.2 fl (80.0-96.0); MONO # 0.5 10^3/uL (0.0-0.8); MONO % 7.9 % (2.0-8.0); NEUTROPHILS # 2.8 10^3/uL (1.5-8.5); NEUTROPHILS % 42.8 % (36.0-66.0); PLATELET COUNT, AUTOMATED 198 10^3/uL (150-450); RED BLOOD COUNT 3.87 10^6/uL (4.00-5.40); WHITE BLOOD COUNT 6.6 10^3/uL (4.0-10.0)
[2024-07-16 17:40] LABS: ALBUMIN 3.4 G/DL (3.2-5.2); ALKALINE PHOSPHATASE 114 U/L (35-104); ALT/SGPT 44 U/L (7.0-40); AST/SGOT 36 U/L (<34); BILIRUBIN,TOTAL 0.4 MG/DL (0.3-1.2); BLOOD UREA NITROGEN 15 MG/DL (9-23); CALCIUM LEVEL 10.5 MG/DL (8.3-10.6); CARBON DIOXIDE LEVEL 35 MMOL/L (20-31); CHLORIDE LEVEL 101 MMOL/L (98-107); CHOLESTEROL LEVEL 216 MG/DL (<200); CREATININE FOR GFR 0.97 MG/DL (0.55-1.30); GLOMERULAR FILTRATION RATE > 60.0 (>45); GLUCOSE, FASTING 90 MG/DL (74-106); HDL CHOLESTEROL 93.6 MG/DL (>40); LDL CHOLESTEROL 104.4 MG/DL (<100); NON-HDL-C 122.4 MG/DL; POTASSIUM SERUM 4.1 MMOL/L (3.5-5.1); SODIUM LEVEL 141 MMOL/L (136-145); THYROID STIMULATING HORMONE 0.694 uIU/ML (0.55-4.78); TOTAL PROTEIN 7.4 G/DL (5.7-8.2); TRIGLYCERIDES LEVEL 90 MG/DL (<150)
[2024-07-16 17:41] LABS: FREE T4 0.99 NG/DL (0.89-1.76)
== END ==
LOC: M SFHCCLAY 14:29
PROVIDERS: ATTEND Nurse Practitioner Family
DX: F41.1 Generalized anxiety disorder (principal); I10 Essential (primary) hypertension; F51.04 Psychophysiologic insomnia; M10.9 Gout, unspecified; Z13.1 Encounter for screening for diabetes mellitus

== ENCOUNTER 2025-03-16 08:39 | Emergency (ER) | payer MEDICARE, MEDICAID ==
[~2025-03-16] VITALS: Ht 170.2 cm; Wt 71.2 kg
[~2025-03-16 08:39] MED LIST changes: +PREG-35 PO; -PREG100CA PO
[2025-03-16] MEDS ORDERED: MAGN400C2 PO (08:55)
[2025-03-16] MEDS ORDERED: IBUP-1022 PO (10:48)
[2025-03-16] MEDS ORDERED: ACET1TAB55 PO (10:48)
[2025-03-16] MEDS ORDERED: ONDA-282 PO (10:48)
[2025-03-16] MEDS: KETOROLAC 30 MG/ML 1 ML VIAL IM ONE (11:03)
[2025-03-16 11:35] VITALS: BP 123/79; TEMP 97.9; O2SAT 92
== END 2025-03-16 11:36 | disposition home or self-care (01) ==
LOC: M ED 08:39
DX: S06.0X0A Concussion without loss of consciousness, initial encounter (principal); W20.8XXA Other cause of strike by thrown, projected or falling object, initial encounter; Y92.009 Unspecified place in unspecified non-institutional (private) residence as the place of occurrence of the external cause; Y93.89 Activity, other specified; Y99.9 Unspecified external cause status; I10 Essential (primary) hypertension; J44.9 Chronic obstructive pulmonary disease, unspecified; Z79.82 Long term (current) use of aspirin; Z79.899 Other long term (current) drug therapy
CPT/HCPCS: 70450; 70486; 72125; 96372; 99283; J1885

== ENCOUNTER 2025-04-27 19:31 | Emergency (ER) | payer MEDICARE, MEDICAID ==
[~2025-04-27] VITALS: Ht 167.6 cm; Wt 70.4 kg
[~2025-04-27 19:31] MED LIST changes: +ACET1TAB55 PO; +IBUP600T42 PO; +MAGN400C2 PO; +ONDA-282 PO
[2025-04-27 21:31] LABS: BASO # 0.0 10^3/uL (0.0-0.2); BASO % 0.6 % (0.0-1.0); EOS # 0.1 10^3/uL (0.0-0.5); EOS % 1.0 % (0.0-3.0); LYMPH # 3.5 10^3/uL (1.5-5.0); LYMPH % 66.3 % (24.0-44.0); MONO # 0.5 10^3/uL (0.0-0.8); MONO % 9.6 % (2.0-8.0); NEUTROPHILS # 1.2 10^3/uL (1.5-8.5); NEUTROPHILS % 22.5 % (36.0-66.0); PLATELET COUNT, AUTOMATED 159 10^3/uL (150-450)
[2025-04-27] MEDS: KETOROLAC 30 MG/ML 1 ML VIAL IV ONE (21:49)
[2025-04-27 22:04] LABS: ALT/SGPT 28.0 U/L (7.0-40); AST/SGOT 32.0 U/L (<34); CALCIUM LEVEL 9.1 MG/DL (8.3-10.6); CARBON DIOXIDE LEVEL 30.0 MMOL/L (20-31); CHLORIDE LEVEL 106.0 MMOL/L (98-107); CREATININE FOR GFR 1.02 MG/DL (0.55-1.30); GLOMERULAR FILTRATION RATE 62.2 (>45); POTASSIUM SERUM 4.0 MMOL/L (3.5-5.1); SODIUM LEVEL 144.0 MMOL/L (136-145)
[2025-04-28] VITALS: BP 142/82; TEMP 97.1; O2SAT 94
== END 2025-04-28 00:07 | disposition home or self-care (01) ==
LOC: M ED 19:31
DX: F07.81 Postconcussional syndrome (principal); I10 Essential (primary) hypertension; J44.9 Chronic obstructive pulmonary disease, unspecified; F17.200 Nicotine dependence, unspecified, uncomplicated; Z79.82 Long term (current) use of aspirin; Z79.899 Other long term (current) drug therapy
CPT/HCPCS: 70450; 70551; 72125; 80053; 85025; 93041; 94760; 96374; 96375; 99284; J1885; J2765

== ENCOUNTER → 2025-05-21 | Outpatient (REF) | payer MEDICARE, MEDICAID | LOC: M SFHCCLAY 11:54 | PROVIDERS: ATTEND Nurse Practitioner Family | DX: R19.7 Diarrhea, unspecified (principal); R10.33 Periumbilical pain ==

== ENCOUNTER → 2025-05-27 | Outpatient (CLI) | payer MEDICARE, MEDICAID ==
[~2025-05-27] MED LIST changes: +PROHANCE 279.3MG/ML 15ML VIAL ONE
== END ==
LOC: M PLAIMG 14:59
PROVIDERS: ATTEND Nurse Practitioner Family
DX: H57.11 Ocular pain, right eye (principal)
CPT/HCPCS: 70543; A9576